=== PATIENT | female | born 2000 | race Caucasian/White ===

== ENCOUNTER → 2020-05-05 10:50 | Outpatient (CLI) | payer OTHER, SELFPAY ==
--- NOTE | ~2020-05-05 | XR_ITS ---
EXAMINATION: XR knee LT min 4V DATE: 05/05/2020 11:17 INDICATION: Left knee contusion with anterolateral pain post fall onto concrete floor 4 days prior. TECHNIQUE: Anteroposterior, 2 oblique and crosstable lateral views of the left knee were obtained COMPARISON: None. FINDINGS: Alignment is normal. No fracture. No joint effusion/layering lipohemarthrosis. Soft tissues are unre markable. IMPRESSION: 1. Normal left knee radiographs. Reviewed, dictated and finalized at location B. RTISING SALES MANAGER
== END ==
PROVIDERS: PCP Family Medicine; Visit Provider Family Medicine
DX: S80.00XA Contusion of unspecified knee, initial encounter (principal)
CPT/HCPCS: 73564

== ENCOUNTER 2022-10-31 14:38 | Emergency (ER) | payer OTHER, SELFPAY ==
[2022-10-31 15:03] VITALS: BP 120/60; PULSE 82; RESP 16; TEMP 36.9; O2SAT 99
--- NOTE | 2022-10-31 15:24 | ECG_ITS ---
Measurements Intervals [place] Rate: 97 P: 97 SC: 125 QRS: 89 QRSD: 84 T: 57 QT: 360 QTc: 459 Interpretive Statements SINUS RHYTHM NONSPECIFIC ST AND T-WAVE ABNORMALITY ABNORMAL ECG NO PREVIOUS ECG AVAILABLE FOR COMPARISON Electronically Signed On 11-01-2022 9:13:59 CDT by Tone Yip M.D.
[2022-10-31 20:22] VITALS: BP 130/74; PULSE 83; RESP 19; TEMP 36.4; O2SAT 98
[2022-10-31 20:33] LABS: Basophils Percent Auto 0.2 % (0.2-1.2); Hematocrit 34.7 % (37.0-47.0); Hemoglobin 11.5 g/dL (12.0-15.0); Immature Granulocyte Absolute 0.07 K/mm3 (0.00-0.031); Immature Granulocyte Percent A 0.5 % (0-0.5); Lymphocytes Percent Auto 6.8 % (18.3-44.2); Mean Corpuscular HGB Conc 33.1 g/dl (32-36); Mean Corpuscular Hemoglobin 28.2 pg (26-34); Mean Platelet Volume 9.3 fl (7.4-10.4); Monocytes Absolute Auto 0.4 K/mm3 (0.1-0.6); Neutrophils Absolute Auto 11.9 K/mm3 (1.3-6.7); Neutrophils Percent Auto 89.5 % (45.5-73.1); Platelet Count Result 380 k/mm3 (150-375); Red Blood Count 4.08 M/mm3 (4.2-5.4); Red Cell Distribution Width 13.1 % (11.5-14.5); White Blood Count 13.3 K/mm3 (4.5-10.0)
[2022-10-31 20:41] LABS: Alanine Aminotransferase 19 U/L (6-35); Albumin Level 4.7 g/dL (3.5-5.1); Alkaline Phosphatase 58 U/L (38-126); Anion Gap 16 mmol/L (8-16); Aspartate Amino Transferase 28 U/L (14-36); Bilirubin,Total 0.6 mg/dL (0.2-1.3); Blood Urea Nitrogen 15 mg/dL (7-17); Calcium 8.9 mg/dL (8.4-10.2); Carbon Dioxide 15 mmol/L (22-30); Chloride 103 mmol/L (98-107); Estimated CRCL calculation 167 ml/min; Estimated Glomerular Filt Rate > 60; Glucose 127 mg/dL (65-110); Lipase 41 U/L (23-300); Potassium 3.5 mmol/L (3.4-5.0); Sodium 134 mmol/L (137-145)
[2022-10-31 22:03] VITALS: BP 105/70; PULSE 76; RESP 15; TEMP 36.8; O2SAT 100
[2022-10-31] MEDS: SODIUM CHLORIDE 0.9% IV 1,000 ML 999 ML IV CONT ×2 (22:43→22:44)
[2022-10-31] MEDS: PROCHLORPERAZINE EDISYLATE 10 MG/2 ML VIAL IV PUSH (22:43)
[2022-10-31] MEDS: diphenhydrAMINE HCl INJ 50 MG/ML VIAL IV PUSH (22:43)
[2022-10-31 23:02] LABS: Pregnancy On Board Control Positive; Urine Pregnancy Test Negative
[2022-10-31 23:05] LABS: Magnesium 1.6 mg/dL (1.6-2.3)
[2022-10-31 23:13] LABS: Appearance Urine Cloudy (Clear); Bacteria Urine 2+ /hpf; Bilirubin Urine Negative (Negative); Blood Urine Negative (Negative); Color Urine Dark Yellow (Yellow); Glucose Urine UA Negative (Negative); Ketones Urine 4+ mg/dL (Negative); Leukocyte Esterase Ur Negative LEU/UL (Negative); Mucus Urine Present /lpf; Nitrate Urine Negative (Negative); Protein Urine 1+ mg/dL (Negative); RBC Urine 0-2 /hpf (0-2); Specific Grav Ur 1.032 (1.001-1.035); Squamous Epithelial Cell Urine Moderate /hpf (Few); pH Urine 8.5 (5.0-9.0)
[2022-10-31 23:14] LABS: Add Urine Microscopic? YES
[2022-10-31] MEDS: MAGNESIUM SULF 1 GM/D5W 100 ML 1 GM/100 ML BAG IVPB (23:47)
--- NOTE | 2022-11-01 01:04 | ED.GENADULT ---
HPI - General Adult General Chief complaint: Nausea/Vomiting/Diarrhea Stated complaint: vomiting since 0700 Time Seen by Provider: 10/31/22 22:07 History of Present Illness HPI narrative: Patient 22-year-old female who presents emerged part with chief complaint of nausea and vomiting and abdominal discomfort. The patient reports she has history of abdominal migraines and reports that she started having an episode and has been unable to keep fluids down. The patient states that the symptoms or not improved by anything and reports that usually Zofran does not work well for her. Patient denies fever denies dysuria patient reports this is her typical presentation for this. Patient denies marijuana use Related Data Allergies Allergy/AdvReac Type Severity Reaction Status Date / Time No Known Allergies Allergy Verified 10/31/22 14:38 Review of Systems Review of Systems: A 10 system review of systems was completed on the patient and is negative except for what is stated in the HPI. Nursing and ancillary documentation was reviewed. PMFSH Past Medical History Medical History Chronic anxiety Concussion Cyclical vomiting Depression History of COVID-19 Left knee sprain Surgical History Surgical History No history of previous surgery Social History Social History Smoking status: Current every day smoker Tobacco type: e-cigarettes/vaping Alcohol intake: never Substance use: never Substance use type: does not use Lack of Transportation: No Lack of Food: Never True Current Housing: I Have Housing Concerned About Future Housing: No Difficulty Paying Gas/Electric Bills: No Difficulty Paying for Meds: No Currently Unemployed: No Education: Associate Degree Difficulty w/ Childcare or Family Care: No Exam Narrative: GENERAL: Well-appearing, well-nourished, and in no acute distress. HEAD: Normocephalic, atraumatic. EYES: PERRLA and EOMI. ENT: Nares clear, no rhinorrhea or epistaxis. Mucous membranes moist. NECK: Supple. CHEST: Clear to auscultation. No respiratory distress. HEART: Regular rate and rhythm. No murmur heard. Normal peripheral pulses. ABDOMEN: Soft, diffusely tender to palpation, nondistended, normal active bowel sounds. EXTREMITIES: Normal range of motion. No edema. SKIN: Warm, dry, no rash. NEURO: No focal deficits. Alert and oriented x3. PSYCH: Normal mood and affect. Course Vital Signs Vital signs: Vital Signs Temperature 36.9 C 10/31/22 15:03 Pulse Rate 82 10/31/22 15:03 Respiratory Rate 16 10/31/22 15:03 Blood Pressure 120/60 10/31/22 15:03 Pulse Oximetry 99 10/31/22 15:03 Oxygen Delivery Room Air 10/31/22 15:03 Temperature 36.8 C 10/31/22 22:03 Pulse Rate 79 11/01/22 01:16 Respiratory Rate 20 11/01/22 01:16 Blood Pressure 116/65 11/01/22 01:16 Pulse Oximetry 100 11/01/22 01:16 Oxygen Delivery Room Air 10/31/22 15:03 Medical Decision Making MDM Narrative Medical decision making narrative: Differential diagnosis includes abdominal migraine, cyclic vomiting syndrome, Laboratory studies were obtained on the patient which showed a white count of 13.3 electrolytes showed a sodium 134 CO2 of 15 potassium was 3.5 lipase was normal liver enzymes are normal urinalysis showed 4+ ketones a 11-20 white blood cells and 2+ bacteria. Patient received 2 L of normal saline boluses and received IV Compazine and Benadryl. Patient is feeling much better at this time Vital Signs Vital Signs: Vital Signs Temperature 36.9 C 10/31/22 15:03 Pulse Rate 82 10/31/22 15:03 Respiratory Rate 16 10/31/22 15:03 Blood Pressure 120/60 10/31/22 15:03 Pulse Oximetry 99 10/31/22 15:03 Oxygen Delivery Room Air 10/31/22 15:
[2022-11-01 01:16] VITALS: BP 116/65; PULSE 79; RESP 20; O2SAT 100
--- NOTE | 2022-11-01 02:07 | PC.NURSE ---
Pt PO challenged and tolerated well
[2022-11-01 02:32] VITALS: BP 139/77; PULSE 97; RESP 20; O2SAT 100
== END 2022-11-01 03:14 | disposition home or self-care (01) ==
PROVIDERS: Physician Assistant; Emergency Provider Emergency Medicine; PCP Family Medicine
DX: G43.D0 Abdominal migraine, not intractable (principal); G43.A0 Cyclical vomiting, in migraine, not intractable; F17.290 Nicotine dependence, other tobacco product, uncomplicated; Z86.16 Personal history of COVID-19; R94.31 Abnormal electrocardiogram [ECG] [EKG]
CPT/HCPCS: 36415; 80053; 81001; 81025; 83690; 83735; 85025; 87086; 87088; 93005; 96361; 96365; 96375; 99284; J0780; J1200; J3475; J7030

== ENCOUNTER 2022-12-07 10:21 | Inpatient (IN) | payer OTHER, SELFPAY ==
--- NOTE | ~2022-12-07 | CT_ITS ---
EXAMINATION: CT abdomen pelvis w con DATE: 12/07/2022 15:08 INDICATION: Generalized abdominal pain TECHNIQUE: Computed tomography (CT) of the abdomen and pelvis was performed with 100 mL Omnipaque-350 intravenous contrast. Automated exposure control and iterative reconstruction technique were employe d. The dose-length product was 463.55 mGy-cm. COMPARISON: None FINDINGS: Lung bases are clear. Heart size is normal. No pericardial or pleural effusion. Liver, gallbladder, s pleen, pancreas, bilateral adrenal glands and kidneys are normal. Bowels including the appendix are n ormal. Bladder, anteverted uterus and bilateral adnexa are unremarkable. No free intraperitoneal gas or fluid. No pathologically enlarged abdominal or pelvic lymphadenopathy. L5 unilateral left-sided pa rs intra-articularis defect. Mild thoracic spondylosis. IMPRESSION: 1. No acute intra-abdominal/pelvic process. Reviewed, dictated and finalized at location A.
[2022-12-07 10:38] VITALS: BP 137/72; PULSE 102; RESP 16; TEMP 36.6; O2SAT 98
[2022-12-07 11:00] LABS: Appearance Urine Cloudy (Clear); Bacteria Urine 2+ /hpf; Bilirubin Urine Negative (Negative); Color Urine Dark Yellow (Yellow); Glucose Urine UA Negative (Negative); Ketones Urine 3+ mg/dL (Negative); Leukocyte Esterase Ur 2+ LEU/UL (Negative); Need Manual Microscopic Reviewed; Nitrate Urine Negative (Negative); Protein Urine 2+ mg/dL (Negative); Squamous Epithelial Cell Urine Occasional /hpf (Few); WBC Urine >100 /hpf
[2022-12-07 11:01] LABS: Add Urine Microscopic? YES
[2022-12-07] MEDS: SODIUM CHLORIDE 0.9% IV 1,000 ML 999 ML IV CONT ×2 (12:45→14:47)
[2022-12-07 12:53] LABS: Basophils Percent Auto 0.2 % (0.2-1.2); Hematocrit 38.7 % (37.0-47.0); Hemoglobin 12.4 g/dL (12.0-15.0); Immature Granulocyte Absolute 0.11 K/mm3 (0.00-0.031); Immature Granulocyte Percent A 0.8 % (0-0.5); Lymphocytes Absolute Auto 1.67 K/mm3 (0.9-3.2); Lymphocytes Percent Auto 11.9 % (18.3-44.2); Mean Corpuscular Hemoglobin 28.2 pg (26-34); Mean Corpuscular Volume 88.2 fl (80-100); Mean Platelet Volume 9.7 fl (7.4-10.4); Monocytes Absolute Auto 1.2 K/mm3 (0.1-0.6); Monocytes Percent Auto 8.8 % (2.6-8.5); Neutrophils Percent Auto 78.3 % (45.5-73.1); Platelet Count Result 365 k/mm3 (150-375); Red Blood Count 4.39 M/mm3 (4.2-5.4); Red Cell Distribution Width 13.5 % (11.5-14.5)
[2022-12-07 13:01] LABS: Alanine Aminotransferase 14 U/L (6-35); Albumin Level 4.4 g/dL (3.5-5.1); Alkaline Phosphatase 53 U/L (38-126); Anion Gap 16 mmol/L (8-16); Aspartate Amino Transferase 22 U/L (14-36); Bilirubin,Total 0.6 mg/dL (0.2-1.3); Blood Urea Nitrogen 18 mg/dL (7-17); Calcium 9.2 mg/dL (8.4-10.2); Carbon Dioxide 16 mmol/L (22-30); Chloride 105 mmol/L (98-107); Estimated CRCL calculation 167 ml/min; Estimated Glomerular Filt Rate > 60; Glucose 115 mg/dL (65-110); Lipase 45 U/L (23-300); Potassium 3.6 mmol/L (3.4-5.0); Sodium 137 mmol/L (137-145)
--- NOTE | 2022-12-07 14:05 | ECG_ITS ---
Measurements Intervals [place] Rate: 75 P: 52 OK: 110 QRS: 80 QRSD: 82 T: 65 QT: 417 QTc: 467 Interpretive Statements SINUS RHYTHM WITH SINUS ARRHYTHMIA WITH SHORT OK INTERVAL COMPARED TO ECG 10/31/2022 15:30:16 SINUS ARRHYTHMIA NOW PRESENT Electronically Signed On 12-08-2022 14:15:54 CDT by Angie Delong M.D.
--- NOTE | 2022-12-07 14:07 | ED.NAVMDI ---
HPI - Nausea/Vomiting/Diarrhea General Chief complaint: Nausea/Vomiting/Diarrhea <Manuela Culp PA-C - Last Filed: 12/07/22 18:22> Stated complaint: Vomitting, fever <Manuela Culp PA-C - Last Filed: 12/07/22 18:22> Time Seen by Provider: 12/07/22 13:11 <NANETTE Spaulding Last Filed: 12/07/22 18:22> History of Present Illness HPI Narrative: 22-year-old female with a history of cyclical vomiting reports for evaluation for generalized abdominal pain and vomiting for 2 days. Patient reports she was diagnosed with cyclical vomiting when she was 7 and since then has had intermittent episodes of vomiting. She denies known triggers. She is reporting generalized abdominal tenderness difficulty tolerating p.o. intake. She denies drug or alcohol use, no use of marijuana. She reports body aches and chills, denies known fever. Denies dysuria or hematuria, back pain, chest pain or shortness of breath, cough or congestion, hematemesis or coffee-ground emesis, diarrhea, known fevers, headache. <Manuela Culp PA-C - Last Filed: 12/07/22 18:22> Related Data Allergies/Adverse reactions: Allergies Allergy/AdvReac Type Severity Reaction Status Date / Time No Known Allergies Allergy Verified 10/31/22 14:38 <Manuela Culp PA-C - Last Filed: 12/07/22 18:22> Review of Systems Review of Systems: CONSTITUTIONAL: See HPI EYES: Denies visual changes, redness, or discharge. ENT: Denies rhinorrhea, congestion, sore throat, or otalgia. CARDIOVASCULAR: Denies chest pain, palpitations, or edema. RESPIRATORY: Denies cough or dyspnea. GASTROINTESTINAL: See HPI GENITOURINARY: Denies dysuria or hematuria. SKIN: Denies rash or itching. MUSCULOSKELETAL: Denies back pain, joint pain, or myalgia. NEUROLOGIC: Denies headache, numbness, dizziness, or weakness. PSYCHIATRIC: Denies anxiety or depression. <NANETTE Spaulding Last Filed: 12/07/22 18:22> [facility] Past Medical History Medical History: Medical History Chronic anxiety Concussion Cyclical vomiting Depression History of COVID-19 Left knee sprain <Manuela Culp PA-C - Last Filed: 12/07/22 18:22> Surgical History Surgical History: Surgical History No history of previous surgery <Manuela Culp PA-C - Last Filed: 12/07/22 18:22> Social History Social History: Social History Smoking status: Never smoker Tobacco type: e-cigarettes/vaping Alcohol intake: current Drinks per week: 1 Substance use: never Substance use type: does not use Lack of Transportation: No Lack of Food: Never True Current Housing: I Have Housing Concerned About Future Housing: No Difficulty Paying Gas/Electric Bills: No Difficulty Paying for Meds: No Currently Unemployed: No Education: Bachelor's Degree Difficulty w/ Childcare or Family Care: No Spiritual care concerns: No <Manuela Culp PA-C - Last Filed: 12/07/22 18:22> Exam Narrative: GENERAL: Patient appears ill and uncomfortable. HEAD: Normocephalic EYES: PERRLA ENT: Nares clear. Mucous membranes moist. Oropharynx without tonsillar hypertrophy exudate or other lesions. NECK: Supple. CHEST: No respiratory distress. Clear to auscultation, no adventitious breath sounds. HEART: Regular rate and rhythm. No murmur heard. Normal peripheral pulses. ABDOMEN: Soft, normal active bowel sounds. Generalized abdominal tenderness without guarding or rigidity. No CVA tenderness. No overlying skin changes. No rebound. EXTREMITIES: Normal range of motion. No edema. SKIN: Warm, dry, no rash. NEURO: No focal deficits. Alert and oriented x3. PSYCH: Normal mood and affect. <Manuela Culp PA-C - Last Filed: 12/07/22 18:22> Course MECHANICAL DESIGNER/PA Physician Supervision
[2022-12-07] MEDS: PROCHLORPERAZINE EDISYLATE 10 MG/2 ML VIAL IV PUSH (14:36)
[2022-12-07 14:50] LABS: Lactic Acid Reflex 1.2 mmol/L (0.7-2.0)
[2022-12-07 15:45] VITALS: O2SAT 100
[2022-12-07 16:03] VITALS: O2SAT 100
[2022-12-07 16:17] VITALS: O2SAT 100
[2022-12-07 19:36] VITALS: BP 124/65; PULSE 67; RESP 16; TEMP 36.8; O2SAT 100
[2022-12-07] MEDS: SODIUM CHLORIDE 0.9% IV 1,000 ML 125 ML IV CONT (19:37)
--- NOTE | 2022-12-07 19:37 | ADMGEN ---
Addendum entered by Jamaica Haas RN 12/07/22 19:37: Pt arrived to the floor with parents at bedside. Pt reports feeling nauseous since beginning to drink water. Pt has IV fluids going. Pt IV continues to be occluded so new IV will be attempted by security shift manager RN. Pt will continue to be monitored. Original Note: This patient, Patricia Michelle, was admitted to [facility] Surg Room 302-01. Patient/family oriented to hospital policies and general routines including ID bracelet, bed and alarms, visiting hours, pain management, procedures, bathroom and other care routines, personal items, smoking policy, room service/diet, and visiting hours. Information on how to activate the Rapid Response Team has been discussed. Patient/Family are encouraged to report perceived risks to care and to ask questions if they do not understand what they are told or what they should do.
[2022-12-07 20:00] VITALS: BP 140/73; PULSE 91
[2022-12-07] MEDS: ONDANSETRON INJ 4 MG/2 ML VIAL IV PUSH (21:25)
[2022-12-08] MEDS: SODIUM CHLORIDE 0.9% IV 1,000 ML 125 ML IV CONT ×3 (01:18→19:32)
--- NOTE | 2022-12-08 03:40 | PM.IMHP ---
H&P: HPI History of Present Illness Date/Time: 12/08/22 03:40 Chief Complaint: ?cyclic vomiting? Narrative: 22-year-old female with a past medical history abdominal migraines, cyclic vomiting, ADHD, anxiety and depression who presented to the ER with generalized vomiting and abdominal pain for 2 days. The patient reports he has been diagnosed with cyclic vomiting from the age of 7. She reports that is been about 10 years since she has had a really bad bout with cyclic vomiting needed to be admitted to the hospital. Usually when she starts vomiting it occurs every 20-30 minutes until it stops. Her symptoms this admission were little bit different. She thought that she may have gotten a case of food poisoning.. She did not feel bad prior to initiation of her symptoms. To she thought she may have gotten bed food to start of her symptoms. However in hindsight she also has been having some increased urinary frequency and urgency. She thought that this was due to trying to drink more fluids. She denies any hematuria, dysuria or foul-smelling urine. However UA in the ER is consistent with likely UTI. She has not been having any fevers or chills. She does practice post coital voiding. She reports that when she started vomiting she developed generalized abdominal tenderness with decreased oral intake. Intention during the heater drinking she was vomiting. Her emesis was mostly clear with occasional green flecks. She does not use marijuana. And she only drinks alcohol about 1 drink a month. She will not drink more than this could she is for did will trigger her nausea vomiting. She denies any coffee-ground emesis hematemesis or hematochezia. She did have several episodes of explosive loose stool 2-3 that started the day after onset of symptoms. She presented to the ER when her symptoms were ongoing for 2 days without relief. Review of Systems Review of Systems: 12 systems were reviewed with pertinent positives and negatives per HPI. Except as documented in the HPI, all other systems were reviewed and are negative. [facility] Past Medical History Medical History (Updated 12/08/22 @ 03:53 by Rosalva Fernandez DO) Chronic anxiety Concussion Cyclical vomiting Depression Bessy-Danlos disease History of COVID-19 Left knee sprain Surgical History Surgical History No history of previous surgery Family History Family History (Updated 12/08/22 @ 07:42 by Rosalva Fernandez DO) Other No significant family history Social History Social History (Updated 12/08/22 @ 07:44 by Rosalva Fernandez DO) Social History: She reports she just graduated from [employer] with a BA in biology. She has not yet started looking for work. She has dating and sexually active. She drinks alcohol about once a month. She denies any illicit substance use. She does vape nicotine. She lives with her parents. Code status: Full code Surrogate decision maker: Mother Smoking status: Never smoker Tobacco type: e-cigarettes/vaping Alcohol intake: current Drinks per week: 1 Substance use: never Substance use type: does not use Lack of Transportation: No Lack of Food: Never True Current Housing: I Have Housing Concerned About Future Housing: No Difficulty Paying Gas/Electric Bills: No Difficulty Paying for Meds: No Currently Unemployed: No Education: Bachelor's Degree Difficulty w/ Childcare or Family Care: No Spiritual care concerns: No Meds Home Medications and Allergies Home Medications Medication Instructions Recorded Confirmed Type triamcinolone acetonide 0.1 % 1 applic topical QID #80 grams 08/15/21 12/07/22 Rx topical cream desogestrel-e.estradiol 0.15 See Rx Instructions .Route 05/01/22 12/07/22 Rx mg-0.02 mg(21)/e.estrad 0.01 mg(5) .COMPLEX #84 tabs tablet (Farida ([id number])) sertraline 50 mg tablet 50 mg PO DA
[2022-12-08 06:00] VITALS: BP 117/59; PULSE 70; RESP 16; TEMP 36.8; O2SAT 99
[2022-12-08 06:47] LABS: Hematocrit 34.2 % (37.0-47.0); Mean Corpuscular HGB Conc 32.2 g/dl (32-36); Mean Corpuscular Hemoglobin 28.4 pg (26-34); Mean Corpuscular Volume 88.4 fl (80-100); Mean Platelet Volume 9.7 fl (7.4-10.4); Platelet Count Result 321 k/mm3 (150-375); Red Blood Count 3.87 M/mm3 (4.2-5.4); Red Cell Distribution Width 13.5 % (11.5-14.5); White Blood Count 11.9 K/mm3 (4.5-10.0)
[2022-12-08 06:54] LABS: Anion Gap 7 mmol/L (8-16); Blood Urea Nitrogen 15 mg/dL (7-17); Calcium 7.9 mg/dL (8.4-10.2); Carbon Dioxide 21 mmol/L (22-30); Chloride 107 mmol/L (98-107); Estimated CRCL calculation 167 ml/min; Estimated Glomerular Filt Rate > 60; Glucose 93 mg/dL (65-110); Magnesium 2.1 mg/dL (1.6-2.3); Potassium 3.4 mmol/L (3.4-5.0); Sodium 135 mmol/L (137-145)
--- NOTE | 2022-12-08 08:00 | PM.IMPN ---
Progress Note: A&P Assessment and Plan (1) Urinary tract infection: Qualifiers: Hematuria presence: with hematuria Urinary tract infection type: acute cystitis Qualified Code(s): N30.01 - Acute cystitis with hematuria Code(s): N39.0 - Urinary tract infection, site not specified Status: Acute Assessment and Plan: Urinalysis suggestive infection. Urine culture pending. IV Rocephin. (2) Intractable vomiting with nausea: Code(s): R11.2 - Nausea with vomiting, unspecified Status: Acute Assessment and Plan: Cyclic vomiting since age 7. Father reports that patient usually just has to sleep it off and the nausea medicine helps her rest. We will attempt IV Haldol with Benadryl. (3) Dehydration: Code(s): E86.0 - Dehydration Status: Acute Assessment and Plan: Midline placement has multiple peripheral IVs have infiltrated immediately. Continue IV fluids. Nausea medication p.r.n.. Plan See above. Midline in place Time Spent With Patient Time with patient: Greater than 35 minutes Subjective Date/time seen: 12/08/22 08:00 Interval history: This is a 22-year-old female patient with a history of cyclic vomiting syndrome suspected to be related to menstrual cycle sleep disturbance. Often patient has vomiting for 24 hours and then falls asleep wakes up with symptoms relieved. However, symptoms of ongoing for over 2 days so she came to the hospital was found to have a urinary tract. She is on IV Rocephin this. Patient still severe nausea. She has received IM Phenergan which has helped her rest. Majority history is obtained from her parents as patient is mostly sedate. Father states that first episode was at age 7 and she had problems for a week then suddenly woke up and said she was better and ready to go home. I spent over 30 minutes speaking with family. Review of Systems Review of Systems: ROS unobtainable: Yes unobtainable due to mental status Exam Narrative: Weight 84 kg BMI 28.2 Const: Other: Well-developed well-nourished, no acute distress HENMT: Other: Mucous membranes are tacky, good dentition, no oral pharyngeal erythema Eyes: Other: No scleral icterus, mild conjunctival pallor, pupils are equal and reactive Neck: Other: No JVD, no significant lymphadenopathy Resp: Other: Clear to auscultation bilaterally, no increased work of breathing Cardio: Other: Regular rate, regular rhythm, 2+ bilateral radial pedal pulses GI: Other: Soft, nontender, nondistended, normoactive bowel sounds Skin: Other: Generalized pallor, No jaundice, normal temperature to touch Neuro: Other: Alert oriented, speech is clear, no facial asymmetry, no localizing neurologic deficits noted during the course of conversation Extrem: Other: No clubbing, cyanosis or edema Psych: Other: Appropriate mood and affect, pleasant and cooperative, judgment insight intact Objective Data Vital Signs Vital Signs: Vital Signs - 24 hr 12/07/22 10:38 12/07/22 15:45 12/07/22 16:03 Temperature 36.6 C Pulse Rate 102 H Respiratory Rate 16 Blood Pressure 137/72 Pulse Oximetry 98 100 100 Oxygen Delivery Room Air 12/07/22 16:17 12/07/22 19:36 12/07/22 20:00 Temperature 36.8 C Pulse Rate 67 91 Respiratory Rate 16 Blood Pressure 124/65 140/73 Pulse Oximetry 100 100 Oxygen Delivery 12/07/22 20:00 12/08/22 06:00 Temperature 36.8 C Pulse Rate 70 Respiratory Rate 16 Blood Pressure 117/59 L Pulse Oximetry 99 Oxygen Delivery Room Air Intake/Output Intake/Output: Intake & Output 12/05/22 12/06/22 12/07/22 12/08/22 23:59 23:59 23:59 23:59 Intake Total 2550 1500 Output Total 200 325 Balance 2350 1175 Meds/Results Medications: Active Medications Generic Name Dose Route Start Last Admin Trade Name Freq PRN Reason Stop Dose Admin Ceftriaxone
[2022-12-08] MEDS: PROMETHAZINE HCL 25 MG/ML AMPUL IM (08:18)
[2022-12-08] MEDS: SERTRALINE HCL 50 MG TABLET PO (08:18)
--- NOTE | 2022-12-08 11:05 | PHAR ---
Home med verified: Volnea control pack - no Rx label present
[2022-12-08] MEDS: LIDOCAINE HCL 1% LOCAL INJ 2 ML AMPUL 5 ML INFILTRATE (11:15)
[2022-12-08 14:00] VITALS: BP 123/73; PULSE 71; RESP 14; TEMP 36.6; O2SAT 100
[2022-12-08] MEDS: SALINE LOCK FLUSH 10 ML IV PUSH (15:32)
[2022-12-08] MEDS: cefTRIAXone 2 GM/NS 100 ML 2 GM/100 ML BAG IVPB (15:32)
[2022-12-08] MEDS: HALOPERIDOL LACTATE 5 MG/ML VIAL IV PUSH (17:32)
[2022-12-08] MEDS: diphenhydrAMINE HCl INJ 50 MG/ML VIAL 25 MG IV PUSH (17:32)
[2022-12-08 18:32] LABS: Amphetamine Screen Urine Negative (Negative); Barbiturate Screen Urine Negative (Negative); Benzodiazepines Screen Urine Negative (Negative); Cannabinoid Screen Urine Positive (Negative); Cocaine Screen Urine Negative (Negative); Methadone Screen Urine Negative (Negative); Opiate Screen Urine Negative (Negative); Phencyclidine Screen Urine Negative (Negative)
[2022-12-08 21:29] VITALS: BP 123/82; PULSE 77; RESP 13; TEMP 37.3; O2SAT 100
[2022-12-09] MEDS: diphenhydrAMINE HCl INJ 50 MG/ML VIAL 25 MG IV PUSH ×2 (00:07→08:29)
[2022-12-09] MEDS: HALOPERIDOL LACTATE 5 MG/ML VIAL IV PUSH ×2 (00:07→08:28)
[2022-12-09] MEDS: SALINE LOCK FLUSH 10 ML IV PUSH ×4 (00:07→20:22)
[2022-12-09 00:15] VITALS: O2SAT 99
--- NOTE | 2022-12-09 00:23 | PC.NURSE ---
Pt reported that the haldol/benadryl combination she received around 5pm helped for nausea until patient woke up nauseous just before midnight. no emesis noted. haldol/benadryl administered again per MAR
[2022-12-09] MEDS: SODIUM CHLORIDE 0.9% IV 1,000 ML 125 ML IV CONT ×3 (03:33→20:21)
[2022-12-09 05:29] VITALS: BP 118/79; PULSE 55; RESP 12; TEMP 36.5; O2SAT 99
[2022-12-09 07:57] VITALS: O2SAT 99
[2022-12-09] MEDS: SERTRALINE HCL 50 MG TABLET PO (08:29)
--- NOTE | 2022-12-09 11:29 | PM.IMPN ---
Progress Note: A&P Assessment and Plan (1) Urinary tract infection: Qualifiers: Hematuria presence: with hematuria Urinary tract infection type: acute cystitis Qualified Code(s): N30.01 - Acute cystitis with hematuria Code(s): N39.0 - Urinary tract infection, site not specified Status: Acute Assessment and Plan: 12/08/2022: Urinalysis suggestive infection. Urine culture pending. IV Rocephin. 12/09/2022: -UA revealed 2+ protein, 3+ ketones, 2+ leukocytes, 2+ bacteria, nitrates were negative. -WBC today was 11.9, BUN 15, creatinine 0.5, potassium 3.4, magnesium 2.1. -urine culture was positive with staphylococcus saprophyticus, awaiting sensitivity to come back. -currently on Rocephin 2 g Q 24 hour and will continue this until culture sensitivities come back. -blood cultures x2 are no growth to date, will continue to monitor (2) Intractable vomiting with nausea: Code(s): R11.2 - Nausea with vomiting, unspecified Status: Acute Assessment and Plan: 12/08/2022: Cyclic vomiting since age 7. Father reports that patient usually just has to sleep it off and the nausea medicine helps her rest. We will attempt IV Haldol with Benadryl. 12/09/2022: -patient is still reporting nausea through the night requiring Haldol and Benadryl. Nursing also gave Phenergan. Patient is somnolent today with minimal interaction. She is not tolerating p.o. intake. Plan is to DC Haldol, Benadryl, Phenergan and replace it with Compazine which seemed to work for her while in the emergency room for control of her nausea and vomiting. -patient encouraged to increase her oral intake today -continue IV fluids - (3) Dehydration: Code(s): E86.0 - Dehydration Status: Acute Assessment and Plan: 12/08/2022: Midline placement has multiple peripheral IVs have infiltrated immediately. Continue IV fluids. Nausea medication p.r.n. 12/09/2022: -continue IV fluids -encourage p.o. intake -Compazine ordered for nausea control. Haldol, Benadryl, and Phenergan DC'd due to somnolence and minimal interaction. Time Spent With Patient Time with patient: 25 - 35 minutes Subjective Date/time seen: 12/09/22 11:29 Interval history: This is a 22-year-old female who presented to the ER on 12/07 with chief complaint of cyclic vomiting. Patient states that she was diagnosed with cyclic vomiting from the age of 7. She reports that she has not had a really bad bout of cyclic vomiting for quite some time. On initial exam she was complaining of urinary frequency and urgency. A UA was performed which shown 2+ protein, 3+ ketones, 2+ leukocytes, 2+ bacteria, nitrates negative. Urine culture was obtained and final results revealed Staphylococcus saprophyticus, however we are still waiting for sensitivity on this culture. Patient has been placed on IV Rocephin. Blood cultures are no growth day 2 and still pending. Labs today revealed WBC 11.9, sodium 135, potassium 3.4, BUN 15, creatinine 0.5. On examination today patient was alert to voice, oriented x3, but drifted back off to sleep with minimal interaction after stimulation. Patient received Haldol, Benadryl, and Phenergan for nausea overnight which could be the reason she is so somnolent today. Patient not taking in adequate po due to her nausea and her somnolence. Plan is to discontinue Haldol, Benadryl, and Phenergan. Patient was given Compazine in the ED which seemed to work okay for her and will put her back on this for nausea vomiting coverage. Patient was encouraged to try and increase her intake today. Review of Systems Constitutional: Constitutional: Reports as per HPI and Reports fatigue Eyes: Eyes: Reports as per HPI and Reports no additional eye complaints ENT: Reports system reviewed and no additional complaints, except as documented and Reports as per HPI Cardiovascular: Cardiovascular: Reports as per HPI and Reports no additional cardiovascular complai
[2022-12-09 14:00] VITALS: BP 126/81; PULSE 68; RESP 16; TEMP 36.8; O2SAT 100
[2022-12-09] MEDS: cefTRIAXone 2 GM/NS 100 ML 2 GM/100 ML BAG IVPB (15:17)
[2022-12-09] MEDS: PROCHLORPERAZINE EDISYLATE 10 MG/2 ML VIAL IV PUSH (15:22)
[2022-12-09] MEDS: LORazepam INJ (*CRX) 2 MG/ML VIAL 0.5 MG IV PUSH (20:38)
[2022-12-09 21:03] VITALS: BP 129/84; PULSE 58; RESP 13; TEMP 37.4; O2SAT 99
[2022-12-10] MEDS: SODIUM CHLORIDE 0.9% IV 1,000 ML 125 ML IV CONT (03:55)
[2022-12-10 04:07] LABS: Basophils Absolute Auto 0.1 K/mm3 (0.0-0.1); Basophils Percent Auto 0.6 % (0.2-1.2); Eosinophils Percent Auto 0.4 % (0-4.4); Hemoglobin 10.2 g/dL (12.0-15.0); Immature Granulocyte Absolute 0.04 K/mm3 (0.00-0.031); Immature Granulocyte Percent A 0.5 % (0-0.5); Lymphocytes Absolute Auto 2.82 K/mm3 (0.9-3.2); Lymphocytes Percent Auto 33.4 % (18.3-44.2); Mean Corpuscular HGB Conc 32.9 g/dl (32-36); Mean Corpuscular Hemoglobin 28.3 pg (26-34); Mean Corpuscular Volume 85.9 fl (80-100); Mean Platelet Volume 9.3 fl (7.4-10.4); Neutrophils Absolute Auto 4.5 K/mm3 (1.3-6.7); Neutrophils Percent Auto 53.1 % (45.5-73.1); Platelet Count Result 272 k/mm3 (150-375); Red Blood Count 3.61 M/mm3 (4.2-5.4); Red Cell Distribution Width 12.7 % (11.5-14.5); White Blood Count 8.4 K/mm3 (4.5-10.0)
[2022-12-10 04:49] LABS: Anion Gap 3 mmol/L (8-16); Blood Urea Nitrogen 5 mg/dL (7-17); Calcium 7.5 mg/dL (8.4-10.2); Carbon Dioxide 26 mmol/L (22-30); Chloride 103 mmol/L (98-107); Estimated CRCL calculation 167 ml/min; Estimated Glomerular Filt Rate > 60; Glucose 95 mg/dL (65-110); Potassium 3.1 mmol/L (3.4-5.0); Sodium 132 mmol/L (137-145)
[2022-12-10 05:09] VITALS: BP 126/79; PULSE 81; RESP 12; TEMP 36.1; O2SAT 100
[2022-12-10] MEDS: SALINE LOCK FLUSH 10 ML IV PUSH ×2 (05:47→14:45)
[2022-12-10] MEDS: POTASSIUM CHLORIDE INJ 40 MEQ in SODIUM CHLORIDE 0.9% IV 500 ML 130 MEQ IVPB (09:24)
[2022-12-10] MEDS: SERTRALINE HCL 50 MG TABLET PO (09:24)
[2022-12-10 14:00] VITALS: BP 118/77; PULSE 77; RESP 20; TEMP 36.6; O2SAT 100
--- NOTE | 2022-12-10 15:35 | PM.DS ---
DS: Admitting Diagnosis Discharge Date 12/10/22 Admitting Diagnosis Urinary tract infection Intractable vomiting and nausea Sepsis Dehydration DS: Discharge Diagnosis Discharge Diagnosis (1) Urinary tract infection: Qualifiers: Hematuria presence: with hematuria Urinary tract infection type: acute cystitis Qualified Code(s): N30.01 - Acute cystitis with hematuria Code(s): N39.0 - Urinary tract infection, site not specified Status: Acute (2) Intractable vomiting with nausea: Code(s): R11.2 - Nausea with vomiting, unspecified Status: Acute (3) Dehydration: Code(s): E86.0 - Dehydration Status: Acute DS: Summary Hospital Course Reason for hospitalization: Urinary tract infection Cyclic vomiting Hospital Course: This is a 22-year-old female who presented to the ER on 12/07/2022 with chief complaint of cyclic vomiting. Patient states that she was diagnosed with cyclic vomiting from the age of 7 however it has been a very long time since she has had a really bad bout of the cyclic vomiting. Hospital workup included a CT of the abdomen and pelvis with contrast which did not reveal any acute intra-abdominal/pelvic process. She also had a UA which shown 2+ protein, 3+ ketones, 2+ leukocytes, 2+ bacteria, nitrates were negative. Urine culture was obtained and a final result revealed Staphylococcus saprophyticus. She was placed on IV Rocephin which she received 2 doses. She also had blood cultures which are no growth day 2. Patient received IV fluid resuscitation, and multiple medications for nausea and vomiting. On exam today patient is still fatigued, more interactive today, and really wanting to go home. She denies any nausea, vomiting, diarrhea, abdominal pain fever, chills. She has started to increase her diet and ambulate in the halls. In light of her not having nausea and vomiting in the last 24 hours it is reasonable to send her home. Plan is to send her home on Compazine 10 mg q.6 hours for nausea to be used as needed and Nitrofurantoin 100mg BID x5 more days, and she will need to follow up with PCP in 1 week. Plan is discussed with his mother, father, and patient bedside. Their all and agreeable with this treatment plan. Status at Discharge Cognitive/behavioral status at discharge: Alert oriented x3 Functional status at discharge: independent ambulation Overall status at discharge: patient is progressing back to baseline Time Spent with Patient Time attestation: Total time spent providing and/or coordinating discharge services: Time spent: Greater than 30 minutes Exam Narrative: GENERAL: fatigued HEAD: Normocephalic, atraumatic. EYES: PERRLA and EOMI. ENT: Nares clear, no rhinorrhea or epistaxis.? Mucous membranes moist. NECK: Supple. No JVD, trachea midline CHEST: Clear/ diminished to auscultation. No adventitious lung sounds? No respiratory distress. HEART: Regular rate and rhythm.? No murmur heard.? Normal peripheral pulses. ABDOMEN: Soft, nondistended, non-tender, normal active bowel sounds. Passing flatus. Had small bowel movement yesterday. EXTREMITIES: Normal range of motion.? No edema. SKIN: Warm, dry, intact, no rash. NEURO: No focal deficits.? Awake to voice and oriented x3 PSYCH: Normal mood and affect DS: Data Data Completed and Pending Completed studies during hospitalization: CT of the abdomen pelvis with contrast Pending studies at discharge: None Labs on day of discharge: Labs from last 24 hours 12/10/22 03:59 WBC 8.4 RBC 3.61 L Hgb 10.2 L Hct 31.0 L MCV 85.9 MCH 28.3 MCHC 32.9 RDW 12.7 Plt Count 272 MPV 9.3 Immature Gran % (Auto) 0.5 Neut % (Auto) 53.1 Lymph % (Auto) 33.4 [place] % (Auto) 12.0 H Eos % (Auto) 0.4 Baso % (Auto) 0.6 Lymph # (Auto) 2.82 [place] # (Auto) 1.0 H Eos # (Auto) 0.0 Baso # (Auto) 0.1 Abs Immat Gran (auto) 0.04 H Absolute Neuts (auto) 4.5 Absolute Nucleated RBC 0.0 Nucleated RBC
[2022-12-10] MEDS: cefTRIAXone 2 GM/NS 100 ML 2 GM/100 ML BAG IVPB (15:43)
[2022-12-10] MEDS: NEOMYCIN/POLYMYXIN/BACITRACIN OINTMENT PACKET 1 PACKET (16:30)
--- NOTE | 2022-12-10 16:36 | PC.NURSE ---
Marilyn Rivera LPN performed care and treatments for this patient on 12/10/22. I agree with her assessments and charting.
--- NOTE | 2022-12-10 17:01 | PC.NURSE ---
12/10/22 @ 4624 Home medication returned to patient at discharge.
== END 2022-12-10 16:55 | disposition home or self-care (01) | DRG 690 ==
LOC: ANHED 15:45 → ANH3MEDSUR 16:22
PROVIDERS: Internal Medicine; Nurse Practitioner; Preventive Medicine Aerospace Medicine; Admitting Provider Internal Medicine; Emergency Provider Physician Assistant; PCP Family Medicine; Visit Provider Nurse Practitioner Acute Care
DX: N30.01 Acute cystitis with hematuria (principal); B95.7 Other staphylococcus as the cause of diseases classified elsewhere; E86.0 Dehydration; G43.A0 Cyclical vomiting, in migraine, not intractable; F41.9 Anxiety disorder, unspecified; F32.A Depression, unspecified; F17.290 Nicotine dependence, other tobacco product, uncomplicated; Z86.16 Personal history of COVID-19
CPT/HCPCS: 36415; 36569; 74177; 80048; 80053; 80307; 81001; 81025; 83605; 83690; 83735; 85025; 85027; 87040; 87077; 87086; 87088; 93005; 96361; 96372; 96375; 96376; 99285; A9270; G0378; J0696; J0780; J1200; J1630; J2060; J2405; J2550; J3480; J7030; J7040; Q9967

== ENCOUNTER 2022-12-23 00:08 | Observation (INO) | payer OTHER, SELFPAY ==
[2022-12-23] VITALS (12 sets, daily range): BP systolic 100–161; BP diastolic 64–96; PULSE 58–96; RESP 12–20; TEMP 36.3–36.7; O2SAT 97–100; BMI 25.1
--- NOTE | ~2022-12-23 | CT_ITS ---
EXAMINATION: CT abdomen pelvis w con DATE: 12/23/2022 03:47 INDICATION: Nausea and vomiting. With 100 cc Omnipaque 350 TECHNIQUE: Computed tomography (CT) of the abdomen and pelvis was performed without intravenous contr ast. The dose-length product was 436.59 mGy-cm. Automated exposure control and iterative reconstructi on technique were employed. COMPARISON: CT dated 12/07/2022. FINDINGS: Lung bases are unremarkable. Heart size normal. No significant pleural or pericardial effus ion. The liver, spleen, pancreas, adrenal glands and kidneys are unremarkable. Gallbladder is present . Nonobstructive bowel pattern. Retroaortic left renal vein. No significant vascular abnormality. No lymphadenopathy. No abnormal pelvic masses or fluid collections. No free air or free fluid. There is a L4 limbus vertebra. There is a left unilateral L5 pars interarticularis defect. IMPRESSION: 1. No acute abdominal abnormality. Reviewed, dictated and finalized at location A.
[2022-12-23] MEDS: diphenhydrAMINE HCl INJ 50 MG/ML VIAL IV PUSH (01:34)
[2022-12-23] MEDS: SODIUM CHLORIDE 0.9% IV 1,000 ML 999 ML IV CONT ×2 (01:34→03:08)
[2022-12-23] MEDS: PROCHLORPERAZINE EDISYLATE 10 MG/2 ML VIAL IV PUSH ×3 (01:34→20:44)
--- NOTE | 2022-12-23 01:48 | ED.GENADULT ---
HPI - General Adult General Chief complaint: Nausea/Vomiting/Diarrhea Stated complaint: vomiting Time Seen by Provider: 12/23/22 00:57 History of Present Illness HPI narrative: Patient 22-year-old female who presents the emergency department with chief complaint of nausea and vomiting. Patient reports she has history of cyclic vomiting syndrome and has been in the emergency department and in the hospital now twice recently. Patient was recently admitted after she had a UTI and was profoundly dehydrated. Patient reports has been taking oral Compazine at home without success patient denies marijuana use Related Data Allergies Allergy/AdvReac Type Severity Reaction Status Date / Time ondansetron [From Zofran] AdvReac Mild not Verified 12/23/22 00:13 effective Review of Systems Review of Systems: A 10 system review of systems was completed on the patient and is negative except for what is stated in the HPI. Nursing and ancillary documentation was reviewed. [facility] Past Medical History Medical History Chronic anxiety Concussion Cyclical vomiting Depression Bessy-Danlos disease History of COVID-19 Left knee sprain Surgical History Surgical History No history of previous surgery Family History Family History Other No significant family history Social History Social History Social History: She reports she just graduated from [employer] with a BA in biology. She has not yet started looking for work. She has dating and sexually active. She drinks alcohol about once a month. She denies any illicit substance use. She does vape nicotine. She lives with her parents. Code status: Full code Surrogate decision maker: Mother Smoking status: Current every day smoker Tobacco type: e-cigarettes/vaping Alcohol intake: current Drinks per week: 1 Substance use: never Substance use type: does not use Lack of Transportation: No Lack of Food: Never True Current Housing: I Have Housing Concerned About Future Housing: No Difficulty Paying Gas/Electric Bills: No Difficulty Paying for Meds: No Currently Unemployed: No Education: Bachelor's Degree Difficulty w/ Childcare or Family Care: No Spiritual care concerns: No Exam Narrative: GENERAL: Illness-appearing, well-nourished, and in no acute distress. HEAD: Normocephalic, atraumatic. EYES: PERRLA and EOMI. ENT: Nares clear, no rhinorrhea or epistaxis. Mucous membranes dry. There is bruising around the face from where the patient has been holding the bowl for vomiting NECK: Supple. CHEST: Clear to auscultation. No respiratory distress. HEART: Regular rate and rhythm. No murmur heard. Normal peripheral pulses. ABDOMEN: Soft, diffusely tender to palpation, nondistended, normal active bowel sounds. EXTREMITIES: Normal range of motion. No edema. SKIN: Warm, dry, no rash. NEURO: No focal deficits. Alert and oriented x3. PSYCH: Normal mood and affect. Course Vital Signs Vital signs: Vital Signs Temperature 36.6 C 12/23/22 00:08 Pulse Rate 82 12/23/22 00:08 Respiratory Rate 15 12/23/22 00:08 Blood Pressure 130/82 12/23/22 00:08 Pulse Oximetry 100 12/23/22 00:08 Oxygen Delivery Room Air 12/23/22 00:08 Temperature 36.6 C 12/23/22 00:08 Pulse Rate 71 12/23/22 05:18 Respiratory Rate 18 12/23/22 05:18 Blood Pressure 116/79 12/23/22 05:18 Pulse Oximetry 99 12/23/22 05:18 Oxygen Delivery Room Air 12/23/22 00:08 Medical Decision Making [facility] Narrative Medical decision making narrative: Differential diagnosis includes cyclic vomiting syndrome, UTI, sepsis, dehydration Laboratory studies were obtained and
[2022-12-23 01:56] LABS: Basophils Percent Auto 0.2 % (0.2-1.2); Eosinophils Percent Auto 0.1 % (0-4.4); Hematocrit 39.8 % (37.0-47.0); Hemoglobin 13.1 g/dL (12.0-15.0); Immature Granulocyte Absolute 0.05 K/mm3 (0.00-0.031); Immature Granulocyte Percent A 0.5 % (0-0.5); Lymphocytes Absolute Auto 1.62 K/mm3 (0.9-3.2); Lymphocytes Percent Auto 15.1 % (18.3-44.2); Mean Corpuscular HGB Conc 32.9 g/dl (32-36); Mean Corpuscular Hemoglobin 27.6 pg (26-34); Mean Platelet Volume 9.8 fl (7.4-10.4); Monocytes Absolute Auto 1.5 K/mm3 (0.1-0.6); Monocytes Percent Auto 14.2 % (2.6-8.5); Neutrophils Absolute Auto 7.5 K/mm3 (1.3-6.7); Neutrophils Percent Auto 69.9 % (45.5-73.1); Platelet Count Result 340 k/mm3 (150-375); Red Blood Count 4.74 M/mm3 (4.2-5.4); Red Cell Distribution Width 13.4 % (11.5-14.5); White Blood Count 10.7 K/mm3 (4.5-10.0)
[2022-12-23 02:09] LABS: Lactic Acid Reflex 1.6 mmol/L (0.7-2.0)
[2022-12-23 02:15] LABS: Alanine Aminotransferase 25 U/L (6-35); Albumin Level 4.5 g/dL (3.5-5.1); Alkaline Phosphatase 47 U/L (38-126); Anion Gap 12 mmol/L (8-16); Aspartate Amino Transferase 37 U/L (14-36); Bilirubin,Total 0.6 mg/dL (0.2-1.3); Blood Urea Nitrogen 15 mg/dL (7-17); Calcium 9.3 mg/dL (8.4-10.2); Carbon Dioxide 20 mmol/L (22-30); Chloride 97 mmol/L (98-107); Estimated CRCL calculation 181 ml/min; Estimated Glomerular Filt Rate > 60; Glucose 120 mg/dL (65-110); Lipase 231 U/L (23-300); Sodium 129 mmol/L (137-145)
[2022-12-23 03:18] LABS: Appearance Urine Cloudy (Clear); Bacteria Urine Rare /hpf; Bilirubin Urine Negative (Negative); Blood Urine Negative (Negative); Color Urine Yellow (Yellow); Glucose Urine UA Negative (Negative); Ketones Urine 2+ mg/dL (Negative); Leukocyte Esterase Ur 1+ LEU/UL (Negative); Nitrate Urine Negative (Negative); Non Pathogenic Casts 0-2; Protein Urine 1+ mg/dL (Negative); RBC Urine 0-2 /hpf (0-2); Specific Grav Ur 1.022 (1.001-1.035); Squamous Epithelial Cell Urine Few /hpf (Few)
[2022-12-23 03:22] LABS: Add Urine Microscopic? YES
[2022-12-23] MEDS: MORPHINE SULFATE (*CRX) 4 MG/ML INJ IV PUSH (06:17)
[2022-12-23] MEDS: SODIUM CHLORIDE 0.9% IV 1,000 ML 125 ML IV CONT ×3 (06:59→20:44)
--- NOTE | 2022-12-23 08:30 | PM.IMHP ---
H&P: HPI History of Present Illness Date/Time: 12/23/22 08:30 Chief Complaint: Nausea with vomiting Narrative: 22-year-old female with history of cyclic vomiting syndrome and recent admission for UTI with dehydration is presenting with intractable nausea and vomiting. Patient has longstanding history of recurrent cyclic vomiting syndrome episodes as well as UTI dehydration brain hospitalizations. She was most recently discharged 12/10 for the same. In the ER, she was initiated on antiemetics and Rocephin for possible UTI given fluid rehydration after being found hyponatremic. Review of Systems Review of Systems: 12 point review of systems was assessed and was negative except as noted in the HPI PMFSH Past Medical History Medical History Chronic anxiety Concussion Cyclical vomiting Depression Bessy-Danlos disease History of COVID-19 Left knee sprain Surgical History Surgical History No history of previous surgery Family History Family History Other No significant family history Social History Social History Social History: She reports she just graduated from [employer] with a BA in biology. She has not yet started looking for work. She has dating and sexually active. She drinks alcohol about once a month. She denies any illicit substance use. She does vape nicotine. She lives with her parents. Code status: Full code Surrogate decision maker: Mother Smoking status: Current every day smoker Tobacco type: e-cigarettes/vaping Alcohol intake: current Drinks per week: 1 Substance use: never Substance use type: does not use Lack of Transportation: No Lack of Food: Never True Current Housing: I Have Housing Concerned About Future Housing: No Difficulty Paying Gas/Electric Bills: No Difficulty Paying for Meds: No Currently Unemployed: No Education: Bachelor's Degree Difficulty w/ Childcare or Family Care: No Spiritual care concerns: No Meds Home Medications and Allergies Home Medications Medication Instructions Recorded Confirmed Type desogestrel-e.estradiol 0.15 See Rx Instructions .Route 05/01/22 12/23/22 Rx mg-0.02 mg(21)/e.estrad 0.01 mg(5) .COMPLEX #84 tabs tablet (Volnea (28)) sertraline 50 mg tablet 50 mg PO DAILY #90 tabs 07/12/22 12/23/22 Rx sumatriptan succinate 50 mg tablet 50 mg PO .COMPLEX #10 tabs 07/12/22 12/23/22 Rx methylphenidate HCl 54 mg 54 mg PO QAM #30 tabs 10/05/22 12/23/22 Rx tablet,extended release 24 hr triamcinolone acetonide 0.1 % 1 applic topical QID PRN Hives 12/23/22 12/23/22 History topical cream Allergies Allergy/AdvReac Type Severity Reaction Status Date / Time ondansetron [From Zofran] AdvReac Mild not Verified 12/23/22 00:13 effective Vital Signs Vital Signs - 24 hr 12/23/22 00:08 12/23/22 01:17 12/23/22 02:55 Temperature 97.9 F Pulse Rate 82 96 87 Respiratory Rate 15 18 18 Blood Pressure 130/82 134/96 H 161/79 H Pulse Oximetry 100 100 100 Oxygen Delivery Room Air 12/23/22 05:18 12/23/22 07:14 12/23/22 08:24 Temperature Pulse Rate 71 61 59 L Respiratory Rate 18 18 18 Blood Pressure 116/79 109/64 Pulse Oximetry 99 98 97 Oxygen Delivery Exam Narrative: General: No acute distress, alert and oriented per baseline HEENT: Atraumatic, normocephalic, mucous membranes moist CV: Regular rate and rhythm, S1, S2 Lungs: Clear to auscultation bilaterally, no rales or crackles noted, no wheezes, good air entry Abdomen: Soft, nontender, nondistended Extremities: Normal to inspection Skin: No rashes noted, no lesions or wounds seen Psych: Euthymic, normal affect H&P: Results Labs Labs: Short CBC 12/23/22 Ran
--- NOTE | 2022-12-23 08:59 | PC.NURSE ---
This patient, Patricia Michelle, was admitted to Medical Room 261-01. Patient/family oriented to hospital policies and general routines including ID bracelet, bed and alarms, visiting hours, pain management, procedures, bathroom and other care routines, personal items, smoking policy, room service/diet, and visiting hours. Information on how to activate the Rapid Response Team has been discussed. Patient/Family are encouraged to report perceived risks to care and to ask questions if they do not understand what they are told or what they should do.
[2022-12-23] MEDS: PANTOPRAZOLE SODIUM IV 40 MG VIAL IV PUSH (10:32)
[2022-12-24 05:29] LABS: Basophils Percent Auto 0.1 % (0.2-1.2); Hematocrit 34.5 % (37.0-47.0); Hemoglobin 11.1 g/dL (12.0-15.0); Immature Granulocyte Absolute 0.03 K/mm3 (0.00-0.031); Immature Granulocyte Percent A 0.4 % (0-0.5); Lymphocytes Absolute Auto 1.48 K/mm3 (0.9-3.2); Lymphocytes Percent Auto 19.6 % (18.3-44.2); Mean Corpuscular HGB Conc 32.2 g/dl (32-36); Mean Corpuscular Hemoglobin 27.8 pg (26-34); Mean Corpuscular Volume 86.3 fl (80-100); Mean Platelet Volume 9.6 fl (7.4-10.4); Monocytes Absolute Auto 0.7 K/mm3 (0.1-0.6); Monocytes Percent Auto 9.4 % (2.6-8.5); Neutrophils Absolute Auto 5.3 K/mm3 (1.3-6.7); Neutrophils Percent Auto 70.5 % (45.5-73.1); Platelet Count Result 268 k/mm3 (150-375); Red Cell Distribution Width 13.2 % (11.5-14.5); White Blood Count 7.6 K/mm3 (4.5-10.0)
[2022-12-24 05:35] VITALS: BP 140/83; PULSE 78; RESP 16; TEMP 36.9; O2SAT 100
[2022-12-24 05:54] LABS: Alanine Aminotransferase 24 U/L (6-35); Albumin Level 3.4 g/dL (3.5-5.1); Alkaline Phosphatase 40 U/L (38-126); Anion Gap 9 mmol/L (8-16); Aspartate Amino Transferase 32 U/L (14-36); Bilirubin,Total 0.5 mg/dL (0.2-1.3); Blood Urea Nitrogen 7 mg/dL (7-17); Calcium 7.8 mg/dL (8.4-10.2); Carbon Dioxide 20 mmol/L (22-30); Chloride 100 mmol/L (98-107); Estimated CRCL calculation 181 ml/min; Estimated Glomerular Filt Rate > 60; Glucose 103 mg/dL (65-110); Potassium 3.3 mmol/L (3.4-5.0); Sodium 129 mmol/L (137-145)
[2022-12-24] MEDS: PANTOPRAZOLE SODIUM IV 40 MG VIAL IV PUSH (09:53)
[2022-12-24] MEDS: SODIUM CHLORIDE 0.9% IV 1,000 ML 125 ML IV CONT (10:44)
--- NOTE | 2022-12-24 12:02 | PM.IMPN ---
Progress Note: A&P Assessment and Plan (1) Intractable cyclical vomiting with nausea: Code(s): R11.15 - Cyclical vomiting syndrome unrelated to migraine Status: Acute Assessment and Plan: IV fluids, antiemetics, supportive care (2) UTI (urinary tract infection): Code(s): N39.0 - Urinary tract infection, site not specified Status: Acute Assessment and Plan: Rocephin initiated 12/22, follow-up urine culture (3) Dehydration: Code(s): E86.0 - Dehydration Status: Acute Assessment and Plan: IV fluid resuscitation (4) Hyponatremia: Code(s): E87.1 - Hypo-osmolality and hyponatremia Status: Acute Assessment and Plan: Likely hypovolemic, see above Essentially unchanged, looks like she had a negative fluid balance despite IV fluids, will increase maintenance rate and give another bolus Plan DVT prophylaxis with SCDs GI prophylaxis not indicated Code status full code Subjective Date/time seen: 12/24/22 12:02 Interval history: 22-year-old female with history of cyclic vomiting syndrome and recent admission for UTI with dehydration is presenting with intractable nausea and vomiting and currently being treated for another UTI exacerbated by CVS and hyponatremia. No overnight events noted. No chest pain or shortness of breath. No fevers or chills. Much improved, still with nausea and vomiting, improving. Review of Systems Review of Systems: 12 point review of systems was assessed and was negative except as noted in the HPI Exam Narrative: General: No acute distress, alert and oriented per baseline HEENT: Atraumatic, normocephalic, mucous membranes moist CV: Regular rate and rhythm, S1, S2 Lungs: Clear to auscultation bilaterally, no rales or crackles noted, no wheezes, good air entry Abdomen: Soft, nontender, nondistended Extremities: Normal to inspection Skin: No rashes noted, no lesions or wounds seen Psych: Euthymic, normal affect Objective Data Vital Signs Vital Signs: Vital Signs - 24 hr 12/23/22 14:30 12/23/22 20:28 12/23/22 20:00 Temperature 97.5 F L 98.1 F Pulse Rate 58 L 77 68 Respiratory Rate 12 20 18 Blood Pressure 106/66 100/82 Pulse Oximetry 98 100 98 Oxygen Delivery Room Air Fraction of Inspired Oxygen 12/24/22 05:35 12/24/22 09:50 Temperature 98.5 F Pulse Rate 78 Respiratory Rate 16 Blood Pressure 140/83 Pulse Oximetry 100 Oxygen Delivery Room Air Fraction of Inspired Oxygen Intake/Output Intake/Output: Intake & Output 12/21/22 12/22/22 12/23/22 12/24/22 23:59 23:59 23:59 23:59 Intake Total 4270 1000 Output Total 1250 800 Balance 3020 200 Meds/Results Medications: Active Medications Generic Name Dose Route Start Last Admin Trade Name Freq PRN Reason Stop Dose Admin Ceftriaxone Sodium 1 gm in 50 mls @ 100 mls/hr 12/24/22 06:00 12/24/22 05:14 Rocephin 1 Gm/Ns 50 Ml IVPB 100 mls/hr Q24H ARNAV Administration Sodium Chloride 1,000 mls @ 125 mls/hr 12/23/22 06:40 12/24/22 10:44 Normal Saline Iv IV CONT 125 mls/hr .Q8H ARNAV Administration Pantoprazole Sodium 40 mg 12/23/22 09:00 12/24/22 09:53 Pantoprazole Sodium Iv 40 Mg Vial IV PUSH 40 mg QAM ARNAV Administration Prochlorperazine Edisylate 10 mg 12/23/22 06:39 12/23/22 20:44 Prochlorperazine Edisylate 10 Mg/2 Ml Vial IV PUSH 10 mg Q6H PRN Administration Nausea And Vomiting Radiology Results: ITS Impressions Abdomen/Pelvis CT 12/23/22 06:03 IMPRESSION: 1. No acute abdominal abnormality. Labs Labs: Laboratory Results - last 24 hr 12/24/22 04:44 WBC 7.6 RBC 4.00 L Hgb 11.1 L Hct 34.5 L MCV 86.3 MCH 27.8 MCHC 32.2 RDW 13.2 Plt Count 268 MPV 9.6 Immature Gran % (Auto) 0.4 Neut % (Auto) 70.5 Lymph % (Auto) 19.6 [place] % (Auto) 9.4 H Eos % (Auto) 0.0 Baso % (Auto) 0.1 L Lymph # (Auto) 1.4
[2022-12-24] MEDS: SODIUM CHLORIDE 0.9% IV 1,000 ML 999 ML IV CONT (12:31)
[2022-12-24] MEDS: POTASSIUM CHLORIDE INJ 40 MEQ in SODIUM CHLORIDE 0.9% IV 500 ML 130 MEQ IVPB (13:45)
[2022-12-24 14:15] VITALS: BP 123/82; PULSE 89; RESP 18; TEMP 36.6; O2SAT 100
[2022-12-24 19:38] VITALS: PULSE 82; RESP 16; O2SAT 99
[2022-12-24 20:21] VITALS: BP 119/60; PULSE 77; RESP 17; TEMP 36.6; O2SAT 100
[2022-12-24] MEDS: SODIUM CHLORIDE 0.9% IV 1,000 ML 250 ML IV CONT (20:21)
[2022-12-25] MEDS: SODIUM CHLORIDE 0.9% IV 1,000 ML 250 ML IV CONT ×4 (02:20→10:41)
[2022-12-25 05:30] VITALS: BP 114/64; PULSE 66; RESP 17; TEMP 36.7; O2SAT 100
[2022-12-25 05:34] LABS: Basophils Percent Auto 0.3 % (0.2-1.2); Eosinophils Absolute Auto 0.1 K/mm3 (0-0.3); Eosinophils Percent Auto 0.8 % (0-4.4); Hematocrit 33.8 % (37.0-47.0); Hemoglobin 10.4 g/dL (12.0-15.0); Immature Granulocyte Absolute 0.04 K/mm3 (0.00-0.031); Immature Granulocyte Percent A 0.6 % (0-0.5); Lymphocytes Absolute Auto 2.84 K/mm3 (0.9-3.2); Lymphocytes Percent Auto 45.4 % (18.3-44.2); Mean Corpuscular HGB Conc 30.8 g/dl (32-36); Mean Corpuscular Hemoglobin 27.4 pg (26-34); Mean Corpuscular Volume 89.2 fl (80-100); Mean Platelet Volume 9.6 fl (7.4-10.4); Monocytes Absolute Auto 0.8 K/mm3 (0.1-0.6); Monocytes Percent Auto 13.3 % (2.6-8.5); Neutrophils Absolute Auto 2.5 K/mm3 (1.3-6.7); Neutrophils Percent Auto 39.6 % (45.5-73.1); Platelet Count Result 237 k/mm3 (150-375); Red Blood Count 3.79 M/mm3 (4.2-5.4); Red Cell Distribution Width 13.2 % (11.5-14.5); White Blood Count 6.3 K/mm3 (4.5-10.0)
[2022-12-25 05:40] LABS: Alanine Aminotransferase 21 U/L (6-35); Alkaline Phosphatase 36 U/L (38-126); Anion Gap 7 mmol/L (8-16); Aspartate Amino Transferase 23 U/L (14-36); Bilirubin,Total 0.5 mg/dL (0.2-1.3); Blood Urea Nitrogen 3 mg/dL (7-17); Calcium 7.6 mg/dL (8.4-10.2); Carbon Dioxide 21 mmol/L (22-30); Chloride 106 mmol/L (98-107); Estimated CRCL calculation 181 ml/min; Estimated Glomerular Filt Rate > 60; Glucose 78 mg/dL (65-110); Potassium 3.3 mmol/L (3.4-5.0); Sodium 134 mmol/L (137-145)
[2022-12-25 08:00] VITALS: O2SAT 97
[2022-12-25] MEDS: SERTRALINE HCL 50 MG TABLET PO (08:27)
[2022-12-25] MEDS: PANTOPRAZOLE SODIUM IV 40 MG VIAL IV PUSH (08:27)
--- NOTE | 2022-12-25 14:24 | PM.DS ---
DS: Admitting Diagnosis Discharge Date 12/25/22 Admitting Diagnosis weakness/NV DS: Discharge Diagnosis Discharge Diagnosis (1) Intractable cyclical vomiting with nausea: Code(s): R11.15 - Cyclical vomiting syndrome unrelated to migraine Status: Acute Assessment and Plan: IV fluids, antiemetics, supportive care (2) UTI (urinary tract infection): Code(s): N39.0 - Urinary tract infection, site not specified Status: Acute Assessment and Plan: Rocephin initiated 12/22, follow-up urine culture (3) Dehydration: Code(s): E86.0 - Dehydration Status: Acute Assessment and Plan: IV fluid resuscitation (4) Hyponatremia: Code(s): E87.1 - Hypo-osmolality and hyponatremia Status: Acute Assessment and Plan: Likely hypovolemic, see above Essentially unchanged, looks like she had a negative fluid balance despite IV fluids, will increase maintenance rate and give another bolus Plan DVT prophylaxis with SCDs GI prophylaxis not indicated Code status full code DS: Summary Hospital Course Hospital Course: 22-year-old female with history of cyclic vomiting syndrome and recent admission for UTI with dehydration is presenting with intractable nausea and vomiting.? Patient has longstanding history of recurrent cyclic vomiting syndrome episodes as well as UTI dehydration brain hospitalizations.? She was most recently discharged 12/10 for the same. In the ER, she was initiated on antiemetics and Rocephin for possible UTI given fluid rehydration after being found hyponatremic. Hyponatremia resolved, all symptoms improved. Please see above and [facility] rec for details. She was discharged in stable condition close outpatient follow-up. Time Spent with Patient Time attestation: Total time spent providing and/or coordinating discharge services: Exam Narrative: General: No acute distress, alert and oriented per baseline HEENT: Atraumatic, normocephalic, mucous membranes moist CV: Regular rate and rhythm, S1, S2 Lungs: Clear to auscultation bilaterally, no rales or crackles noted, no wheezes, good air entry Abdomen: Soft, nontender, nondistended Extremities: Normal to inspection Skin: No rashes noted, no lesions or wounds seen Psych: Euthymic, normal affect DS: Data Data Completed and Pending Labs on day of discharge: Labs from last 24 hours 12/25/22 04:54 WBC 6.3 RBC 3.79 L Hgb 10.4 L Hct 33.8 L MCV 89.2 MCH 27.4 MCHC 30.8 L RDW 13.2 Plt Count 237 MPV 9.6 Immature Gran % (Auto) 0.6 H Neut % (Auto) 39.6 L Lymph % (Auto) 45.4 H [place] % (Auto) 13.3 H Eos % (Auto) 0.8 Baso % (Auto) 0.3 Lymph # (Auto) 2.84 [place] # (Auto) 0.8 H Eos # (Auto) 0.1 Baso # (Auto) 0.0 Abs Immat Gran (auto) 0.04 H Absolute Neuts (auto) 2.5 Absolute Nucleated RBC 0.0 Nucleated RBC % 0.0 Sodium 134 L Potassium 3.3 L Chloride 106 Carbon Dioxide 21 L Anion Gap 7 L BUN 3 L Creatinine 0.40 L Estim Creat Clear Calc 181 Estimated GFR > 60 Glucose 78 Calcium 7.6 L Total Bilirubin 0.5 AST 23 ALT 21 Alkaline Phosphatase 36 L Total Protein 6.0 L Albumin 3.0 L Discharge Plan Discharge Attending physician on discharge: Dena Snow Discharging Clinician: Dena Snow Patient Disposition: Home, Self-Care Activity: as tolerated Diet: as tolerated Patient Instructions: Antibiotic Form, How to Stop Smoking (GEN), Urinary Tract Infection in Women (DC), Hyponatremia (DC), Acute Nausea and Vomiting (DC) Stand Alone Forms: General Discharge Information Follow-up/Referrals: Isabel Garcias MD [Primary Care Provider] - Discharge Medications: Continued methylphenidate HCl 54 mg tablet extended release 24hr 54 mg PO QAM Qty: 30 0RF Rx Instructions: DECEMBER sertraline 50 mg tablet 50 mg PO DAILY Qty: 90 3RF sumatriptan succinate 50 mg tablet 50 m
[2022-12-25 14:45] VITALS: BP 129/78; PULSE 70; RESP 16; TEMP 36.4; O2SAT 100
[2022-12-25] MEDS: POTASSIUM CHLORIDE 20 MEQ ER TABLET 40 MEQ PO (14:46)
== END 2022-12-25 15:45 | disposition home or self-care (01) ==
LOC: ANHED 06:39 → ANH2MED 08:36 → ANH3MEDSUR 12-26 10:16
PROVIDERS: Admitting Provider Student in an Organized Health Care Education/Training Program; Emergency Provider Emergency Medicine; PCP Family Medicine; Visit Provider Student in an Organized Health Care Education/Training Program
DX: R11.15 Cyclical vomiting syndrome unrelated to migraine (principal); N39.0 Urinary tract infection, site not specified; E86.0 Dehydration; E87.1 Hypo-osmolality and hyponatremia; F41.9 Anxiety disorder, unspecified; F32.A Depression, unspecified; L50.9 Urticaria, unspecified; Q79.60 Ehlers-Danlos syndrome, unspecified; Z86.16 Personal history of COVID-19; F17.290 Nicotine dependence, other tobacco product, uncomplicated; F10.90 Alcohol use, unspecified, uncomplicated; Z79.3 Long term (current) use of hormonal contraceptives; Z79.899 Other long term (current) drug therapy
CPT/HCPCS: 36415; 74177; 80053; 81001; 81025; 83605; 83690; 83735; 85025; 87086; 96361; 96365; 96366; 96375; 96376; 99285; A9270; C9113; G0378; J0696; J0780; J1200; J2270; J3480; J7030; J7040; Q9967

== ENCOUNTER 2023-09-07 16:12 | Observation (INO) | payer OTHER, SELFPAY ==
[2023-09-07 16:14] VITALS: BP 143/94; PULSE 92; RESP 16; TEMP 36.7; O2SAT 100
[2023-09-07 17:47] LABS: Basophils Percent Auto 0.1 % (0.2-1.2); Eosinophils Percent Auto 0.1 % (0-4.4); Hematocrit 39.9 % (37.0-47.0); Hemoglobin 13.5 g/dL (12.0-15.0); Immature Granulocyte Absolute 0.08 K/mm3 (0.00-0.031); Immature Granulocyte Percent A 0.5 % (0-0.5); Lymphocytes Absolute Auto 1.69 K/mm3 (0.9-3.2); Lymphocytes Percent Auto 11.5 % (18.3-44.2); Mean Corpuscular HGB Conc 33.8 g/dl (32-36); Mean Corpuscular Hemoglobin 28.7 pg (26-34); Mean Corpuscular Volume 84.9 fl (80-100); Mean Platelet Volume 9.4 fl (7.4-10.4); Monocytes Absolute Auto 0.7 K/mm3 (0.1-0.6); Neutrophils Absolute Auto 12.2 K/mm3 (1.3-6.7); Neutrophils Percent Auto 82.8 % (45.5-73.1); Platelet Count Result 417 k/mm3 (150-375); Red Cell Distribution Width 13.9 % (11.5-14.5); White Blood Count 14.7 K/mm3 (4.5-10.0)
--- NOTE | 2023-09-07 17:51 | ED.NAVMDI ---
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 Father is at bedside. Patient states for the past 3 days she has had difficulty keeping down food and fluids and has been vomiting green bile. States in June of 2023 she saw her GI doctor andFlorina Matute and had a gallbladder scan performed which showed an EF of 10%. She was started on Motegrity which seemed to have helped some until now. She states only Compazine and IV fluids seem to help her symptoms as well as hot showers. She denies alcohol or drug use including marijuana use. However she does admit that she used to use marijuana and stopped August 03 because she felt that the marijuana use was making her symptoms worse. She is reporting diffuse abdominal pain but denies focal abdominal pain, dysuria or hematuria, urinary frequency urgency, cough or congestion, known fevers. No prior abdominal surgeries. LMP around mid August. Patient states she feels dehydrated. <NANETTE Spaulding Last Filed: 09/07/23 21:06> Related Data Home medications: Home Medications Medication Instructions Recorded Confirmed amitriptyline 10 mg tablet 30 mg PO QHS 09/07/23 09/07/23 prucalopride 2 mg tablet 2 mg PO DAILY 09/07/23 09/07/23 (Motegrity) <NANETTE Spaulding Last Filed: 09/07/23 21:06> Allergies/Adverse reactions: Allergies Allergy/AdvReac Type Severity Reaction Status Date / Time ondansetron [From Zofran] AdvReac Mild not Verified 09/07/23 22:19 effective <NANETTE Spaulding Last Filed: 09/07/23 21:06> Review of Systems Review of Systems: CONSTITUTIONAL: Denies fever, chills, or sweats. EYES: Denies visual changes, redness, or discharge. ENT: Denies rhinorrhea, congestion, sore throat, or otalgia. CARDIOVASCULAR: Denies chest pain, palpitations, or edema. RESPIRATORY: Denies cough or dyspnea. GASTROINTESTINAL: see HPI GENITOURINARY: Denies dysuria or hematuria. SKIN: Denies rash or itching. MUSCULOSKELETAL: Denies back pain, joint pain, or myalgia. NEUROLOGIC: Denies headache, numbness, or weakness. PSYCHIATRIC: Denies anxiety or depression. <Manuela Culp PA-C - Last Filed: 09/07/23 21:06> [facility] Past Medical History Medical History: Medical History (Updated 09/07/23 @ 21:37 by Afua Abdi, EMILIANO) Anemia Attention-deficit hyperactivity disorder, other type Atypical squamous cells of undetermined significance (ASC-US) on cervical Pap smear hpv negative Chronic anxiety Concussion Cyclical vomiting Depression Bessy-Danlos disease Generalized anxiety disorder History of COVID-19 Left knee sprain Migraine without aura, not intractable, with status migrainosus <Manuela Culp PA-C - Last Filed: 09/07/23 21:06> Surgical History Surgical History: Surgical History No history of previous surgery <Manuela Culp PA-C - Last Filed: 09/07/23 21:06> Family History Family History: Family History Other No significant family history <Manuela Culp PA-C - Last Filed: 09/07/23 21:06> Social History Social History: Social History Social History: She reports she just graduated from [employer] with a BA in biology. She has not yet started looking for work. She has dating and sexually active. She drink
[2023-09-07 17:53] LABS: Appearance Urine Cloudy (Clear); Bacteria Urine 1+ /hpf; Bilirubin Urine Negative (Negative); Blood Urine Negative (Negative); Color Urine Yellow (Yellow); Glucose Urine UA Negative (Negative); Ketones Urine 4+ mg/dL (Negative); Leukocyte Esterase Ur Negative LEU/UL (Negative); Nitrate Urine Negative (Negative); Non Pathogenic Casts 0-2; Protein Urine 1+ mg/dL (Negative); RBC Urine 0-2 /hpf (0-2); Specific Grav Ur 1.037 (1.001-1.035); Squamous Epithelial Cell Urine Few /hpf (Few)
[2023-09-07] MEDS: PROCHLORPERAZINE EDISYLATE 10 MG/2 ML VIAL IV PUSH ×2 (17:53→21:31)
[2023-09-07] MEDS: SODIUM CHLORIDE 0.9% IV 1,000 ML 999 ML IV CONT (17:53)
[2023-09-07 17:58] LABS: Add Urine Microscopic? YES
[2023-09-07 18:07] VITALS: BP 144/99; PULSE 94; RESP 20; O2SAT 100
[2023-09-07 18:10] LABS: Alanine Aminotransferase 28 U/L (6-35); Albumin Level 5.4 g/dL (3.5-5.1); Alkaline Phosphatase 71 U/L (38-126); Anion Gap 22 mmol/L (4-12); Aspartate Amino Transferase 30 U/L (14-36); Bilirubin,Total 1.1 mg/dL (0.2-1.3); Blood Urea Nitrogen 18 mg/dL (7-17); Calcium 9.6 mg/dL (8.4-10.2); Carbon Dioxide 11 mmol/L (22-30); Chloride 103 mmol/L (98-107); Estimated CRCL calculation 125 ml/min; Estimated Glomerular Filt Rate > 60; Glucose 116 mg/dL (65-110); Lipase 69 U/L (23-300); Potassium 3.4 mmol/L (3.4-5.0); Sodium 136 mmol/L (137-145)
[2023-09-07 18:21] LABS: Pregnancy On Board Control Positive; Urine Pregnancy Test Negative
--- NOTE | 2023-09-07 18:32 | PC.NURSE ---
RT at bedside
[2023-09-07 18:43] LABS: Alveolar/Arterial O2 Gradient 14.9 mmHg; Base Excess ABG -8.9 mEq/l (+/-2.0); Fractional Inspired Oxygen 21 %; Oxygen Content ABG 15.3 %vol (16.0-22.0); Oxygen Saturation ABG 98.4 % (95.0-100.0); Oxyhemoglobin 97.6 % THb (90.0-100.0); PO2 ABG 112.2 mmHg (80.0-100.0); PO2 FiO2 Ratio Arterial Blood 5.34 %; pH ABG 7.455 (7.350-7.450)
[2023-09-07 18:46] LABS: Device ROOM AIR; PCO2 ABG 18.9 mmHg (35.0-45.0); Site Drawn RIGHT BRACHIAL
[2023-09-07] MEDS: DEXTROSE 50% 25 GM/50 ML SYRINGE IV PUSH (19:09)
[2023-09-07] MEDS: LACTATED RINGERS 1,000 ML 999 ML IV CONT ×2 (19:09→20:30)
[2023-09-07 20:32] VITALS: BP 124/82; PULSE 71; RESP 17; O2SAT 98
[2023-09-07 20:48] LABS: Lactic Acid Reflex 1.4 mmol/L (0.7-2.0)
[2023-09-07] MEDS: LORazepam INJ (*CRX) 2 MG/ML VIAL 0.5 MG IV PUSH (21:30)
[2023-09-07] MEDS: SODIUM CHLORIDE 0.9% IV 250 ML 999 ML (21:31)
[2023-09-07 21:33] VITALS: BP 129/85; PULSE 87; RESP 18; O2SAT 99
--- NOTE | 2023-09-07 21:35 | PM.IMHP ---
H&P: HPI History of Present Illness Date/Time: 09/07/23 21:35 Chief Complaint: Nausea and Vomiting Narrative: 23 y/o F presents here with nausea and vomiting with PMH of Bessy-Danlos Syndrome, anxiety, depression, ADHD, and migraines. The patient presents here with nausea and vomiting. Onset was 3 days ago and she has been having difficulty keeping food or drink down. Emesis appears as green bile. She has a history of Bessy-Danlos syndrome with intractable vomiting. The patient has also seen a GI specialist in June of this year (2023) per she had a gallbladder scan performed which showed it was functioning 10%. She was started on Motegrity which has helped her nausea and vomiting. Typically her nausea and vomiting response to Compazine, fluids, and hot showers. Does have history of marijuana use, last use August 03. No longer per takes because she believes the marijuana may be making her symptoms worse. Denies ETOH use. Today nausea and vomiting are accompanied by abdominal pain. She describes the abdominal pain as diffuse, nonradiating, constant, aggravated by vomiting, and alleviated by hot showers. Did have one episode of diarrhea a few days ago. Denying urinary symptoms, fever, chills, body aches, shortness of breath, chest pain. No previous history of abdominal surgeries. LMP mid August. Initial VS at presentation: 98.1? F, HR 92, RR 16, 143/94, and 100% on RA. ED workup showed: WBC 14.7, hemoglobin 13.5 (previous was 10.4 in 2022), platelet count 417, creatinine 0.6 and GFR >60, UA equivocal. Review of Systems Review of Systems: All systems reviewed & are unremarkable except as noted in HPI and below [facility] Past Medical History Medical History (Updated 09/07/23 @ 21:37 by Afua Abdi, EMILIANO) Anemia Attention-deficit hyperactivity disorder, other type Atypical squamous cells of undetermined significance (ASC-US) on cervical Pap smear hpv negative Chronic anxiety Concussion Cyclical vomiting Depression Bessy-Danlos disease Generalized anxiety disorder History of COVID-19 Left knee sprain Migraine without aura, not intractable, with status migrainosus Surgical History Surgical History No history of previous surgery Family History Family History Other No significant family history Social History Social History Social History: She reports she just graduated from [employer] with a BA in biology. She has not yet started looking for work. She has dating and sexually active. She drinks alcohol about once a month. She denies any illicit substance use. She does vape nicotine. She lives with her parents. Code status: Full code Surrogate decision maker: Mother Smoking status: Current every day smoker Tobacco type: e-cigarettes/vaping Alcohol intake: current Drinks per week: 1 Substance use: never Substance use type: does not use Lack of Transportation: No Lack of Food: Never True Current Housing: I Have Housing Concerned About Future Housing: No Difficulty Paying Gas/Electric Bills: No Difficulty Paying for Meds: No Currently Unemployed: No Education: Bachelor's Degree Difficulty w/ Childcare or Family Care: No Spiritual care concerns: No Meds Home Medications and Allergies Home Medications Medication Instructions Recorded Confirmed Type sumatriptan succinate 50 mg tablet 50 mg PO .COMPLEX #10 tabs 07/12/22 04/25/23 Rx triamcinolone acetonide 0.1 % 1 applic topical QID PRN Hives 12/23/22 04/25/23 History topical cream amitriptyline 10 mg tablet See Rx Instructions .Route 12/26/22 09/07/23 Rx .COMPLEX #270 tabs desogestrel-e.estradiol 0.15 See Rx Instructions .Route 04/02/23 09/07/23 Rx mg-0.02 mg(21)/e.estrad 0.01 mg(5) .COMPLEX #84 tabs
[2023-09-07 22:00] VITALS: BP 128/83; PULSE 107; RESP 18; TEMP 37; O2SAT 100
--- NOTE | 2023-09-07 22:15 | ADMGEN ---
This patient, Patricia Michelle, was admitted to Medical Room 341-01. Patient/family oriented to hospital policies and general routines including ID bracelet, bed and alarms, visiting hours, pain management, procedures, bathroom and other care routines, personal items, smoking policy, room service/diet, and visiting hours. Information on how to activate the Rapid Response Team has been discussed. Patient/Family are encouraged to report perceived risks to care and to ask questions if they do not understand what they are told or what they should do.
[2023-09-07 22:30] VITALS: BMI 28.0
[2023-09-07] MEDS: LACTATED RINGERS 1,000 ML 125 ML IV CONT (22:30)
[2023-09-07 22:32] VITALS: BP 144/82; PULSE 101; RESP 20; TEMP 37; O2SAT 98
[2023-09-07] MEDS: diphenhydrAMINE HCl INJ 50 MG/ML VIAL 25 MG IV PUSH (22:52)
[2023-09-07] MEDS: PANTOPRAZOLE SODIUM IV 40 MG VIAL IV PUSH (22:52)
--- NOTE | 2023-09-07 23:42 | PHAR ---
HOME MED VERIFIED MOTEGRITY 2MG TABLETS TAKE 1 TABLET DAILY
[2023-09-08 05:36] LABS: Basophils Percent Auto 0.3 % (0.2-1.2); Eosinophils Percent Auto 0.2 % (0-4.4); Hematocrit 27.2 % (37.0-47.0); Immature Granulocyte Absolute 0.06 K/mm3 (0.00-0.031); Immature Granulocyte Percent A 0.6 % (0-0.5); Lymphocytes Absolute Auto 3.38 K/mm3 (0.9-3.2); Lymphocytes Percent Auto 33.7 % (18.3-44.2); Mean Corpuscular HGB Conc 33.1 g/dl (32-36); Mean Corpuscular Hemoglobin 28.5 pg (26-34); Mean Corpuscular Volume 86.1 fl (80-100); Mean Platelet Volume 9.5 fl (7.4-10.4); Monocytes Absolute Auto 1.1 K/mm3 (0.1-0.6); Monocytes Percent Auto 10.8 % (2.6-8.5); Neutrophils Absolute Auto 5.5 K/mm3 (1.3-6.7); Neutrophils Percent Auto 54.4 % (45.5-73.1); Platelet Count Result 256 k/mm3 (150-375); Red Blood Count 3.16 M/mm3 (4.2-5.4)
[2023-09-08 05:54] LABS: Alanine Aminotransferase 13 U/L (6-35); Albumin Level 3.1 g/dL (3.5-5.1); Alkaline Phosphatase 42 U/L (38-126); Anion Gap 9 mmol/L (4-12); Aspartate Amino Transferase 19 U/L (14-36); Bilirubin,Total 0.7 mg/dL (0.2-1.3); Blood Urea Nitrogen 10 mg/dL (7-17); Calcium 7.9 mg/dL (8.4-10.2); Carbon Dioxide 19 mmol/L (22-30); Chloride 106 mmol/L (98-107); Estimated CRCL calculation 165 ml/min; Estimated Glomerular Filt Rate > 60; Glucose 87 mg/dL (65-110); Sodium 134 mmol/L (137-145)
[2023-09-08 06:00] VITALS: BP 105/74; PULSE 81; RESP 20; TEMP 36.8; O2SAT 99
[2023-09-08] MEDS: PANTOPRAZOLE SODIUM IV 40 MG VIAL IV PUSH (08:22)
[2023-09-08] MEDS: LACTATED RINGERS 1,000 ML 125 ML IV CONT ×2 (08:23→16:44)
[2023-09-08] MEDS: SERTRALINE HCL 50 MG TABLET PO (08:23)
[2023-09-08 09:46] LABS: Amphetamine Screen Urine Negative (Negative); Barbiturate Screen Urine Negative (Negative); Benzodiazepines Screen Urine Negative (Negative); Cannabinoid Screen Urine Positive (Negative); Cocaine Screen Urine Negative (Negative); Methadone Screen Urine Negative (Negative); Opiate Screen Urine Negative (Negative); Phencyclidine Screen Urine Negative (Negative)
--- NOTE | 2023-09-08 10:15 | PM.IMPN ---
Progress Note: A&P Assessment and Plan (1) Intractable vomiting with nausea: Code(s): R11.2 - Nausea with vomiting, unspecified Status: Acute Assessment and Plan: - test negative - antiemetics: compazine, one time dose of benadryl - IV fluids - UDS - clear liquids, advanced as tolerated to regular diet - suspect intractable vomiting secondary to hyper mobile Bessy-Danlos syndrome - trend renal function and CBC (2) Acute dehydration: Code(s): E86.0 - Dehydration Status: Acute Assessment and Plan: - IV fluids Plan The patient presents here with intractable nausea and vomiting for the past 3 days with bilious emesis. Suspect this is a recurrence of intractable vomiting secondary to hyper mobile Bessy-Danlos syndrome. Will treat with antiemetics and IV fluids. UDS pending. UA equivocal for UTI. No urinary symptoms. Follow UC. Home medications reviewed and resumed as appropriate. will consult GI Diet: Clear liquid, advanced as tolerated GI Prophylaxis: pantoprazole IVP QAM DVT Prophylaxis: low risk Lines: Peripheral Code Status: Full code Time Spent With Patient Time with patient: 25 - 35 minutes Subjective Date/time seen: 09/08/23 10:15 Interval history: 23 y/o F admitted with nausea and vomiting with PMH of Bessy-Danlos Syndrome, anxiety, depression, ADHD, and migraines. Onset was 3 days ago and she has been having difficulty keeping food or drink down. Emesis appears as green bile. She has a history of Bessy-Danlos syndrome with intractable vomiting. The patient has also seen a GI specialist in June of this year (2023) per she had a gallbladder scan performed which showed it was functioning 10%. She was started on Motegrity which has helped her nausea and vomiting. Typically her nausea and vomiting response to Compazine, fluids, and hot showers. Does have history of marijuana use, last use August 03. No longer per takes because she believes the marijuana may be making her symptoms worse. Denies ETOH use. Today nausea and vomiting are accompanied by abdominal pain. She describes the abdominal pain as diffuse, nonradiating, constant, aggravated by vomiting, and alleviated by hot showers. Did have one episode of diarrhea a few days ago. Denying urinary symptoms, fever, chills, body aches, shortness of breath, chest pain. No previous history of abdominal surgeries. LMP mid August. Initial VS at presentation: 98.1? F, HR 92, RR 16, 143/94, and 100% on RA. ED workup showed: WBC 14.7, hemoglobin 13.5 (previous was 10.4 in 2022), platelet count 417, creatinine 0.6 and GFR >60, UA equivocal. 7/6- pt was khai and examined. She denies any pain,n/v/d. Comfortable at the moment. GIven the history - will consult GI. If no intervention needed and stable- will anticipate discharge home tomorrow. Review of Systems Review of Systems: All systems reviewed & are unremarkable except as noted in HPI and below Constitutional: Constitutional: Denies chills ENT: Denies dysphagia Cardiovascular: Cardiovascular: Denies chest pain, Denies diaphoresis, Denies pedal edema and Denies leg edema Respiratory: Respiratory: Denies chest congestion and Denies cough Gastrointestinal: Comments: no acute complains at this time Exam Const: General: comfortable and no acute distress Other: , female, nontoxic appearance HENMT: Face/Nose/Sinus: Normal nares present Mouth: Yes dry mucous membranes Eyes: General: appearance normal, both eyes and all related structures Sclera: sclerae normal Pupils: Equal, round and reactive pupils present EOM: EOMs intact bilaterally Resp: Effort & Inspection: normal respiratory effort Auscultation: clear to auscultation bilaterally Cardio: Rate: regular rate Rhythm: regular rhythm Other: S1-S2 present without murmur, rub, ectopy GI: Other: Abdomen soft, nondistended, nontender Skin: General skin exam:
[2023-09-08] MEDS: PROCHLORPERAZINE EDISYLATE 10 MG/2 ML VIAL IV PUSH ×2 (13:50→20:19)
[2023-09-08 14:00] VITALS: PULSE 83; RESP 16; TEMP 36.8; O2SAT 100
[2023-09-08 14:39] VITALS: BP 140/91
[2023-09-08 19:17] VITALS: BP 141/75; PULSE 87; RESP 20; TEMP 36.7; O2SAT 99
[2023-09-08 20:00] VITALS: PULSE 87; RESP 20; O2SAT 99
[2023-09-08] MEDS: AMITRIPTYLINE HCL 10 MG TABLET 30 MG PO (20:18)
[2023-09-09] MEDS: LACTATED RINGERS 1,000 ML 125 ML IV CONT ×2 (00:55→09:41)
[2023-09-09 04:51] VITALS: BP 135/73; PULSE 90; RESP 18; TEMP 36.4; O2SAT 100
[2023-09-09] MEDS: PROCHLORPERAZINE EDISYLATE 10 MG/2 ML VIAL IV PUSH (04:54)
[2023-09-09] MEDS: PANTOPRAZOLE SODIUM IV 40 MG VIAL IV PUSH (09:46)
[2023-09-09] MEDS: SERTRALINE HCL 50 MG TABLET PO (09:46)
[2023-09-09 11:03] VITALS: O2SAT 98
[2023-09-09 14:02] VITALS: BP 141/88; PULSE 98; RESP 16; TEMP 35.9; O2SAT 100
--- NOTE | 2023-09-09 15:33 | WPDGICN ---
Assessment and Plan Assessment and plan (1) Intractable cyclical vomiting with nausea: Code(s): R11.15 - Cyclical vomiting syndrome unrelated to migraine Status: Acute Assessment and Plan: she has been in the hospital at least 5 times last 12 months with similar symptoms, it seems that she has cyclic vomiting- just recently stopped smoking marijuana continue supportive care, fluids, diet as tolerated, antiemetics will need to follow-up with her GI doctor as outpatient, also at some point complete gastric emptying study if not done probably also prophylaxis like elavil (2) Acute dehydration: Code(s): E86.0 - Dehydration Status: Acute Assessment and Plan: treating (3) Bessy-Danlos disease: Code(s): Q79.60 - Bessy-Danlos syndrome, unspecified Status: Acute (4) Chronic anxiety: Code(s): F41.9 - Anxiety disorder, unspecified Status: Acute (5) Constipation: Code(s): K59.00 - Constipation, unspecified Status: Acute Assessment and Plan: motegrity, also for dysmotility GI Consult Note Consult date/time: 09/09/23 15:33 Reason for consult: n/v HPI: Patricia Michelle is a 23 year old female with history of Bessy-Danlos syndrome with chronic nausea since 8 yo. She has seen a GI specialist earlier this in June, had EGD without major findings per patient, also HIDA scan that showed it was functioning 10%. She is taking at home compazine and motegrity for constipation and dysmotility (zofran does not work). Here with 3 days of intractable nausea and vomiting, unable to keep food or drink down. She used to smoke marijuana but last time August 03- she was told that probably playing a role on her symptoms. Review of Systems Constitutional: Constitutional: Denies chills Eyes: Eyes: Denies blurry vision ENT: Denies dysphagia Cardiovascular: Cardiovascular: Denies chest pain Respiratory: Respiratory: Denies cough Gastrointestinal: Gastrointestinal: Reports nausea and Reports vomiting Genitourinary: Genitourinary: Denies urinary urgency Musculoskeletal: Musculoskeletal: Denies neck pain Integumentary/Breasts: Skin/Breast: Denies rash Neurologic: Denies Abnormal speech present Psychiatric: Psychiatric: Denies confusion [facility] Past Medical History Medical History (Updated 09/09/23 @ 15:37 by Raghu Monahan MD) Anemia Attention-deficit hyperactivity disorder, other type Atypical squamous cells of undetermined significance (ASC-US) on cervical Pap smear hpv negative Chronic anxiety Concussion Constipation Cyclical vomiting Depression Bessy-Danlos disease Generalized anxiety disorder History of COVID-19 Left knee sprain Migraine without aura, not intractable, with status migrainosus Surgical History Surgical History No history of previous surgery Family History Family History Other No significant family history Social History Social History Social History: She reports she just graduated from [employer] with a BA in biology. She has not yet started looking for work. She has dating and sexually active. She drinks alcohol about once a month. She denies any illicit substance use. She does vape nicotine. She lives with her parents. Code status: Full code Surrogate decision maker: Mother Smoking status: Current every day smoker Tobacco type: e-cigarettes/vaping Additional smoking assessment comments: vapes daily, unsure amount Alcohol intake: never Drinks per week: 1 Substance use: former Substance use type: marijuana Do You Feel Safe in your Home?: Yes Lack of Transportation: No Lack of Food: Never True Current Housing: I Have Housing Concerned About Future Housing: No Difficul
--- NOTE | 2023-09-09 16:34 | PC.NURSE ---
RN spoke with Hospitalist Madelyn via telephone in regards to discharge and home medications. RN is unable to continue Methylphenidate due to it being a controlled medication. RN made hospitalist aware of this. Hospitalist instructed RN to put in discharge instructions to continue this medication per PCP.
--- NOTE | 2023-09-10 07:08 | PM.DS ---
DS: Admitting Diagnosis Discharge Date 09/09/23 Admitting Diagnosis n/v DS: Discharge Diagnosis Discharge Diagnosis (1) Intractable vomiting with nausea: Code(s): R11.2 - Nausea with vomiting, unspecified Status: Acute Assessment and Plan: - test negative - antiemetics: compazine, one time dose of benadryl - IV fluids - UDS - clear liquids, advanced as tolerated to regular diet - suspect intractable vomiting secondary to hyper mobile Bessy-Danlos syndrome - trend renal function and CBC (2) Acute dehydration: Code(s): E86.0 - Dehydration Status: Acute Assessment and Plan: - IV fluids Plan final dx: acute dehydration, Bessy-Danlos disease The patient presents here with intractable nausea and vomiting for the past 3 days with bilious emesis. Suspect this is a recurrence of intractable vomiting secondary to hyper mobile Bessy-Danlos syndrome. Will treat with antiemetics and IV fluids. UDS pending. UA equivocal for UTI. No urinary symptoms. Follow UC. Home medications reviewed and resumed as appropriate. will consult GI Diet: Clear liquid, advanced as tolerated GI Prophylaxis: pantoprazole IVP QAM DVT Prophylaxis: low risk Lines: Peripheral Code Status: Full code DS: Summary Hospital Course Hospital Course: 23 y/o F admitted with nausea and vomiting with PMH of Bessy-Danlos Syndrome, anxiety, depression, ADHD, and migraines. Onset was 3 days ago and she has been having difficulty keeping food or drink down. Emesis appears as green bile. She has a history of Bessy-Danlos syndrome with intractable vomiting. The patient has also seen a GI specialist in June of this year (2023) per she had a gallbladder scan performed which showed it was functioning 10%. She was started on Motegrity which has helped her nausea and vomiting. Typically her nausea and vomiting response to Compazine, fluids, and hot showers. Does have history of marijuana use, last use August 03. No longer per takes because she believes the marijuana may be making her symptoms worse. Denies ETOH use. Today nausea and vomiting are accompanied by abdominal pain. She describes the abdominal pain as diffuse, nonradiating, constant, aggravated by vomiting, and alleviated by hot showers. Did have one episode of diarrhea a few days ago. Denying urinary symptoms, fever, chills, body aches, shortness of breath, chest pain. No previous history of abdominal surgeries. LMP mid August. Initial VS at presentation: 98.1? F, HR 92, RR 16, 143/94, and 100% on RA. ED workup showed: WBC 14.7, hemoglobin 13.5 (previous was 10.4 in 2022), platelet count 417, creatinine 0.6 and GFR >60, UA equivocal. 7/6- pt was khai and examined. She denies any pain,n/v/d. Comfortable at the moment. GIven the history - will consult GI. If no intervention needed and stable- will anticipate discharge home tomorrow. gi saw her: it seems that she has cyclic vomiting- just recently stopped smoking marijuana continue supportive care, fluids, diet as tolerated, antiemetics will need to follow-up with her GI doctor as outpatient, also at some point complete gastric emptying study if not done probably also prophylaxis like elhawk covarrubias Time Spent with Patient Time attestation: Total time spent providing and/or coordinating discharge services: Exam Const: General: comfortable and no acute distress Other: , female, nontoxic appearance HENMT: Face/Nose/Sinus: Normal nares present Mouth: Yes dry mucous membranes Eyes: General: appearance normal, both eyes and all related structures Sclera: sclerae normal Pupils: Equal, round and reactive pupils present EOM: EOMs intact bilaterally Resp: Effort & Inspection: normal respiratory effort Auscultation: clear to auscultation bilaterally Cardio: Rate: regular rate Rhythm: regular rhythm Other: S1-S2 present without murmur, rub, ectopy GI: Other: Abdomen soft, nondis
== END 2023-09-09 16:55 | disposition home or self-care (01) ==
LOC: ANHED 21:06 → ANH3MED 21:43
PROVIDERS: Emergency Medicine; Student in an Organized Health Care Education/Training Program; Admitting Provider General Practice; Emergency Provider Physician Assistant; PCP Family Medicine; Visit Provider General Practice
DX: R11.15 Cyclical vomiting syndrome unrelated to migraine (principal); E87.29 Other acidosis; E86.0 Dehydration; K59.00 Constipation, unspecified; Q79.62 Hypermobile Ehlers-Danlos syndrome; F90.8 Attention-deficit hyperactivity disorder, other type; F41.1 Generalized anxiety disorder; F32.A Depression, unspecified; F17.290 Nicotine dependence, other tobacco product, uncomplicated
CPT/HCPCS: 36415; 36600; 80053; 80307; 81001; 81025; 82805; 83605; 83690; 85025; 87086; 96361; 96374; 96375; 99285; A9270; G0378; J0780; J1200; J2060; J2470; J7030; J7050; J7120

== ENCOUNTER 2024-05-11 09:44 | Emergency (ER) | payer BC, SELFPAY ==
--- OUTSIDE RECORDS SUMMARY | 2024-05-11 09:46 | XMS_ITS | Clinical Summary ---
Author Organization [facility] Address [address] [place] [address] Phone Care Team Providers Care Client Support Associate Name Role Phone Isabel Garcias MD Primary Care Provider Allergies No known active allergies Medications CONCERTA 36 MG Tablet Controlled Release TK 1 T PO QAM 0 09/09/2018 Active amitriptyline (ELAVIL) 10 MG Tablet 06/28/2018 Active raNITIdine (ZANTAC) 150 MG Tablet 06/28/2018 Active VIORELE 0.15-0.02/0.01 MG (23/07) Tablet 09/04/2018 Ac tive Active Problems No known active problems Social History Tobacco Use Types Packs/Day Years Used Date Smoking Tobacco: Never Smokeless Tobacco: Never Comments No Sex and Gender Information Value Date Recorded Sex Assigned at Not on file Legal Sex Female 7:17 PM CDT Gender Identity Not on file Sexual Orientation Not on file Last Filed Vital Signs Vital Sign Reading Time Taken Comments Blood Pressure 120/66 05/02/2020 3:58 PM FINISHING TECHNICIAN Pulse 96 05/02/2020 3:58 PM FINISHING TECHNICIAN Temperature 37 C (98.6 F) 05/02/2020 3:58 PM FINISHING TECHNICIAN Respiratory Rate 14 05/02/2020 3:58 PM FINISHING TECHNICIAN Oxygen Saturation 98% 05/02/2020 3:58 PM FINISHING TECHNICIAN Inhaled Oxygen Concentration - - Weight 83.9 kg (185 lb) 09/18/2018 2:44 PM CDT Height 171.5 cm (5' 7.5 ) 09/18/2018 2:44 PM CDT Body Mass Index 28.55 09/18/2018 2:44 PM CDT Plan of Treatment Health Maintenance Due Date Last Done Comments Hepatitis C Virus (HCV) Screening 2000 TdaP Immunization 2000 Meningococcal B Immunization (1 of 2 - Standard) 2016 Hepatitis B Immunization (1 of 3 - 19+ 3-dose series) 05/15/2019 Human Papillomavirus (HPV) Immunization (2 - 3-dose series) 05/15/2019 04/17/2019 Pap Smear 2021 Influenza Immunization (#1) 11/04/202304/05, 12/11/2017 SARS-COV-2 Immunization ( season) 2023 08/11/2020, 07/21/2020 Respiratory Syncytial Virus (RSV) Immunization (Adult) (1 - 1-dose 75+ series) 05/15/2075 Meningococcal Immunization (ACWY) Completed 12/11/2017 Hepatitis A Immunization Discontinued 04/17/2019 Pneumococcal Immunization Combined Aged Out No longer eligible based on patient's age to complete this topic Rotavirus Immunization Aged Out No lo nger eligible based on patient's age to complete this topic Care Teams Client Support Associate Relationship Specialty Start Date End Date Isabel Garcias MD PCP - General Family Medicine 09/18/18
--- OUTSIDE RECORDS SUMMARY | 2024-05-11 09:46 | XMS_ITS | Encounter Summary ---
Author Organization [facility] Address [address] [place] [address] Phone Care Team Providers Care Filtrose Crusher Name Role Phone Isabel Garcias MD Primary Care Provider + Encounter Details Date Type Department Care Team (Late st Contact Info) Description 07/12/2020 Orders Only [facility] Orthopaedic Surgery [address] [place] [address] [place] [address] [place] [address] Social History Tobacco Use Types Packs/Day Years Used Date Smoking Tobacco: Never Smokeless Tobacco: Never AUDIT-C Answer Date Recorded Q1: How often do you have a drink containing alc ohol? Never 06/23/2020 Average Number of Drinks Not on file 021 Q3: How often do you have si x or more drinks on one occasion? Never 06/23/2020 Comments No Sex and Gender Information Value Date Recorded Sex Assigned at Not on file Legal Sex Female 12:27 AM EXCEL DEVELOPER Gender Identity Not on file Sexual Orientation Not on file documented as of this encounter Plan of Treatment Not on file documented as of this encounter Visit Diagnoses Not on filedocumented in this encounter Care Teams Filtrose Crusher Relationship Specialty Start Date End Date Isabel Garcias MD PCP - General Family Medicine 12/29/19 documented as of this encounter
--- OUTSIDE RECORDS SUMMARY | 2024-05-11 09:46 | XMS_ITS | Referral Summary ---
Author Organization [facility] Address [address] [place] [address] Care Team Providers Care Carbon Lamp Cleaner Name Role Phone Isabel Garcias MD Primary Care Provider + Allergies No known active allergies Medications amitriptyline (ELAVIL) 10 mg tabletIndications: abdominal migraines Take 30 mg by mouth nightly 0 Active Viorele, 28, 0.15-0.02 mgx21 /0.01 mg x 5 per tabletIndications: Abnormal Uterine Bleeding Take 1 tablet by mouth every morning 0 Active methylphenidate ER (CONCERTA) 36 mg CR tabletIndications: Attention-Deficit Hyperactivity Disorder Take 36 mg by mouth every morning 0 Active sertraline (ZOLOFT) 25 mg tabletIndications: Generalized Anxiety Disorder Take 25 mg by mouth every morning 1 Active SUMAtriptan (IMITREX) 50 mg tablet Take 50 mg by mouth once as needed for migraine 1 Active HYDROcodone-acetam inophen (NORCO) 5-325 mg per tabletIndications: Pain TAKE 1 TABLET EVERY 4-6 HOURS NEEDED FOR PAIN 20 tablet 1 Active Active Problems Problem Noted Date Diagnosed Date Cyclic vomiting syndrome 11/03/2023 Patellar instability of left knee 06/16/2020 Overview (06/16/2020): Added automatically from request for surgery [id number] Knee pain 01/13/2015 Pneumonia 12/29/2011 Overview (06/07/2016): Pneumonia Asthma 12/20/2011 Overview (06/07/2016): Asthma Adiposity 12/20/2011 Overview (06/09/2016): Obesity Migraine 12/20/2011 Overview (06/09/2016): Migraine Medical examinations/reports status 12/20/2011 Overview (06/09/2016): Health care maintenance Normocytic anemia 12/20/2011 Overview (06/09/2016): Normocytic anemia Myopia 12/20/2011 Overview (06/09/2016): Myopia Atypical nevus 12/20/2011 Overview (06/09/2016): Atypical nevi Vomiting 07/02/2009 Overview (07/16/2020): Last Assessment & Plan: Assessment: Patricia is a 14 y.o. Female with past medical history of anxiety, remote history of cyclic vomiting syndrome, abdominal migraines who presents with acute onset of central abdominal pain and NBNB emesis x1 day, admitted for poor PO intake. Plan: 1. Advance to regular diet as tolerated 2. Wean IVF, encourage liquid PO intake to discontinue IVF 3. Acetaminophen 650 mg Q4 PRN for pain 4. Discontinue zofran 5. Discharge home once tolerating regular diet Last Assessment & Plan: Assessment: Patricia is a 14 y.o. Female with past medical history of anxiety, remote history of cyclic vomiting syndrome, abdominal migraines who presents with acute onset of central abdominal pain and NBNB emesis x1 day, admitted for poor PO intake. Plan: 1. Advance to regular diet as tolerated 2. Wean IVF, encourage liquid PO intake to discontinue IVF 3. Acetaminophen 650 mg Q4 PRN for pain 4. Discontinue zofran 5. Discharge home once tolerating regular diet Immunizations Immunization Administration Dates Next Due DTaP 03/29/2005, 2,2000,09/28,2000 Hep B, Adolescent or Pediatric 2000,2000,2000 Hib (HbOC) 08/14/2001, 1,2000,07/18 IPV 03/29/2005, 2,2000,07/18 Influenza, Split 01/27/2013,12/25/2011 Influenza, Trivalent, Preser vative Free, Intramuscular 01/24/2011 MMR 03/29/2005,05/15/2001 Meningococcal MCV4P (Menactra) 09/25/2011 Pneumococcal Conjugate 7-Valent 08/15/19 02,2000,2000,07/18 Tdap 09/25/2011 Varicella 02/20/2006,05/15/2001 Social History Tobacco Use Types Packs/Day Years Used Date Smoking Tobacco: Never Smokeless Tobacco: Never AUDIT-C Answer Date Recorded Q1: How often do you have a drink containing alc ohol? Never 06/23/2020 Average Number of Drinks Not on file 021 Q3: How often do you have si x or more drinks on one occasion? Never 06/23/2020 Personal Safety Answer Date Recorded Have you ever been in or are you currently in a harmful physical or emotional relationship or is someone making you feel afraid or unsafe? 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 Gender Identity Not on file Sexual Orientation Not on file Last Filed Vital Signs Vital Sign Reading Time Taken Comments Blood Pressure 110/72 11/03/2023 11:33 AM CDT Pulse 98 11/03/2023 11:33 AM CDT Temperature 36.6 C (97.9 F) 11/03/2023 11:33 AM CDT Respiratory Rate 18 11/03/2023 11:33 AM CDT Oxygen Saturation 100% 11/03/2023 11:33 AM CDT Inhaled Oxygen Concentration - - Weight 68.5 kg (151 lb) 11/02/2023 8:19 PM CDT Height 172.7 cm (5' 8 ) 11/02/2023 8:19 PM CDT Body Mass Index 22.96 11/02/2023 8:19 PM CDT Plan of Treatment Not on file Medical Devices Implanted Type Area Social Economist Device Identifier Shelf Expiration Date Model / Serial / Lot [employer] [id number] Suturetak Tigerwire 3mm 14.5mm 2 [place] Suture Fiberwire - [id number] Implanted:Qty: 1 on 07/06/2020 by Tone Orosco MD at [facility] Left: Knee [employer] 11/03/2023 [id number]- [id number] / / [id number] Insurance [id number] CHOICE PLUS [facility] CHOICE PLUS Care Teams Carbon Lamp Cleaner Relationship Specialty Start Date End Date Isabel Garcias MD PCP - General Family Medicine 12/29/19
--- OUTSIDE RECORDS SUMMARY | 2024-05-11 09:46 | XMS_ITS | Clinical Summary ---
Author Organization [facility] Address [address] [place] [address] Care Team Providers Care Horseradish Maker Name Role Phone Isabel Garcias MD Primary [...] (06/16/2020): Added automatically from request for surgery [id number] Knee pain 01/13/2015 Pneumonia 12/29/2011 Overview (06/07/2016): [...] 7-Valent 08/15/19 02,2000,2000,07/18 Tdap 09/25/2011 Varicella 02/20/2006,05/15/2001 Surgical History Surgery Date Site/Laterality Comments OTHER SURGICAL HISTORY Bronchiolitis: Admit. OTHER SURGICAL HISTORY Fever ? UTI: [facility] WISDOM TOOTH EXTRACTION ESOPHAGOGASTRODUODENOSCOPY OTHER SURGICAL HISTORY stye removed from eyelid Medical History Medical History Date Comments Bronchiolitis 2001 Bronchiolitis Hx Other Medical 2010 Fever ? UTI Hx Other Medical 2005 Chalazion R exc ised Hx Other Medical 2007 Elbow FX Abdominal migraine, not intractable Abdominal migraine - (Added by TW Conv) Family History Medical History Relation Name Comments ADD / ADHD Father ADD/ADHD; on Co ncerta 54 Migraines Mother Migraine; Other Mother Otitis recurren t; Other Other 2 Family history of arrhthmia/pacemaker; Coronary artery disease Other 3 Fami ly history of Coronary artery disease; Diabetes Other 4 Family history of Diabetes mellitus; Hyperlipidemia Other 5 Family histor y of Hyperlipidemia; Migraines Other 6 Family history of Migraines; Other Other 7 No family histo ry of Sudden <50; Macular degeneration Other 8 Family history of Macular degeneration; Stargardt's dis. Need ophtalmology after age 8. Diabetes Other 9 Family history of diabetes mellitus - Relation: Grandparent (Added by TW Conv) Arthritis Other 10 Family history of arthritis - Relation: Grandparent (Added by TW Conv) Anesthesia problems Neg Hx Relation Name Status Comments Father Alive Mother Other 1 Alive Other 2 Other 3 Other 4 Other 5 Other 6 Other 7 Other 8 Other 9 Other 10 Social History Tobacco Use Types Packs/Day Years [...] on file Legal Sex Female 12:27 AM CLAIM AGENT Gender Identity Not on file Sexual Orientation Not on file Obstetrics History Last Filed Vital Signs Vital Sign Reading [...] 11/02/2023 8:19 PM CDT Plan of Treatment Health Maintenance Due Date Last Done Comments Cervical Cancer Screening 2000 Depression Screening 2000 Hepatitis C Screening 2000 Pneumococcal vaccine <65 (1 of 1 - PPSV23) 2006 08/14/2001, 2000, 2000, Additional history exists Meningococcal B Vaccine (1 o f 2 - Standard) 2016 Regular Well Visit/Exam 18-64 2018 HPV Vaccines (2 - 3-dose series) 05/15/2019 04/17/19 20 DTaP/Tdap/Td Vaccine (7 - Td or Tdap) 09/24/2021 09/25/2011, 03/29/2005, 08/14/2001, Additional history exists Influenza Vaccine (#1) 2023 , 12/11/2017, 01/27/2013, Additional history exists Hepatitis B Screening Completed 2000 , 2000, 2000 Varicella Vaccines Completed 02/20/2006, 05/15/2001 Medical Devices Implanted Type Area Water Purifier Operator Device Identifier Shelf Expiration Date Model / Serial / Lot [employer] [id number] Suturetak Tigerwire 3mm 14.5mm 2 [place] Suture Fiberwire - [id number] Implanted:Qty: 1 on 07/06/2020 by Tone Orosco MD at [facility] Left: Knee [employer] 11/03/2023 [id number]- [id number] / / [id number] Insurance CHOICE PLUS [employer] CHOICE PLUS Care Teams Horseradish Maker Relationship Specialty Start Date End Date Isabel Garcias MD PCP - General Family Medicine 12/29/19
--- OUTSIDE RECORDS SUMMARY | 2024-05-11 09:46 | XMS_ITS | Patient Health Summary ---
Author Organization [facility] Address [address] [facility] [place] [address] Care Team Providers Care Forming Machine Upkeep Mechanic Helper Name Role Phone Isabel Garcias MD Primary Care Provider [phone] Note from [facility],non-owned Affiliates and Associated Physician Practices is amultiple site organization consisting of ambulatory clinics and hospital sitesin [place], [place], [place] and [place]. This disclosure is being madepursuant to the Care Everywhere program and may not contain all information available regarding this patient. Last updated 17.[facility] Allergies No known active allergies Medications * Be aware that medications may not be up to date on this document. Alwaysverify current medications with the patient. * amitriptyline (ELAVIL) 25 MG tablet Take 25 mg by mouth at bedtime * ibuprofen (MIDOL) 200 MG capsule Take 200 mg by mouth 4 times daily as needed for Pain Active Problems Problem Noted Date Diagnosed Date Vomiting 07/02/2009 Social History Tobacco Use Types Packs/Day Years Used Date Smoking Tobacco: Never Alcohol Use Standard Drinks/Week Comments No 0 (1 standard drink = 0.6 oz pur e alcohol) Sex and Gender Information Value Date Recorded Sex Assigned at Not on file Gender Identity Not on file Sexual Orientation Not on file Last Filed Vital Signs Vital Sign Reading Time Taken Comments Blood Pressure 116/64 09/15/2014 11:50 AM CDT Pulse 80 09/15/2014 11:50 AM CDT Temperature 36.7 C (98 F) 09/15/2014 11:50 AM CDT Respiratory Rate 20 09/15/2014 11:50 AM CDT Oxygen Saturation 100% 09/14/2014 3:30 PM CDT Inhaled Oxygen Concentration - - Weight 77 kg (169 lb 12.1 oz) 09/14/2014 2:09 PM CDT Height 141.1 cm (4' 7.55 ) 10/28/2009 4:02 PM CD T Body Mass Index - - Procedures * HCG URINE QUALITATIVE(Performed 09/15/2014) * URINE MICROSCOPIC ONLY(Performed 09/14/2014) * URINALYSIS REFLEX TO MICROSCOPIC NO CULTURE(Performed 09/14/2014) * DIFFERENTIAL MANUAL(Performed 09/14/2014) * CBC W AUTO DIFFERENTIAL(Performed 09/14/2014) * LIPASE BLOOD(Performed 09/14/2014) * AMYLASE BLOOD(Performed 09/14/2014) * ALT(Performed 09/14/2014) * AST BLOOD(Performed 09/14/2014) * BASIC METABOLIC PANEL (CALCIUM TOTAL)(Performed 09/14/2014) * GROSS + MICRO EXAM(Performed 06/07/2009) * HELICOBACTER PYLORI UREASE(Performed 06/07/2009) * CORTISOL BLOOD AM(Performed 06/05/2009) * BASIC METABOLIC PANEL (CALCIUM TOTAL)(Performed 06/05/2009) * URINALYSIS REFLEX TO MICROSCOPIC NO CULTURE(Performed 06/05/2009) * GLUCOSE(Performed 06/04/2009) * LYTES (NA K CL CO2) BLOOD(Performed 06/04/2009) * LIPASE BLOOD(Performed 06/04/2009) * CREATININE BLOOD(Performed 06/04/2009) * BUN(Performed 06/04/2009) * CBC W/O DIFFERENTIAL(Performed 06/04/2009) * XR ABD OBSTRUCTION SERIES 2VW(Performed 06/04/2009) * GLUCOSE(Performed 06/04/2009) * CREATININE BLOOD(Performed 06/04/2009) * BILIRUBIN TOTAL BLOOD(Performed 06/04/2009) * ALBUMIN BLOOD(Performed 06/04/2009) * LYTES (NA K CL CO2) BLOOD(Performed 06/04/2009) * ALT(Performed 06/04/2009) * AST BLOOD(Performed 06/04/2009) * PROTEIN TOTAL BLOOD(Performed 06/04/2009) * CALCIUM BLOOD(Performed 06/04/2009) * BUN(Performed 06/04/2009) * ALKALINE PHOSPHATASE BLOOD(Performed 06/04/2009) * URINALYSIS REFLEX TO MICROSCOPIC NO CULTURE(Performed 06/03/2009) * CULTURE URINE(Performed 06/03/2009) * DIFFERENTIAL MANUAL(Performed 06/03/2009) * COMPREHENSIVE METABOLIC PANEL(Performed 06/03/2009) * CBC W AUTO DIFFERENTIAL(Performed 06/03/2009) * FL UGI SERIES(Performed 04/26/2009) Performed for Vomiting Alone * CT HEAD WO CONTRAST(Performed 04/15/2009) Performed for Headache * URINALYSIS REFLEX TO MICROSCOPIC NO CULTURE(Performed 03/21/2009) * CULTURE URINE(Performed 03/21/2009) * LIPASE BLOOD(Performed 03/21/2009) * COMPREHENSIVE METABOLIC PANEL(Performed 03/21/2009) * AMYLASE BLOOD(Performed 03/21/2009) * CBC W AUTO DIFFERENTIAL(Performed 03/21/2009) * XR ABD OBSTRUCTION SERIES 2VW(Performed 03/21/2009) * URINALYSIS REFLEX TO MICROSCOPIC NO CULTURE(Performed 03/21/2009) * CULTURE URINE(Performed 03/21/2009) * US KIDNEY(Performed 03/20/2009) * OCCULT BLOOD EMESIS(Performed 03/20/2009) Results * HCG URINE QUALITATIVE (09/15/2014 4:51 AM CDT) Pathologist [facility] hCG Qualitative Urine Negative Negative 09/15/2014 5:09 AM CDT [facility] Urine URINE / Unknown 09/15/2014 4 :51 AM CDT 09/15/2014 5:00 AM CDT Cait Butts MD LAB - URINALYSIS ORD ERABLES Performing Organization Address City/State/RUST Co de Phone Number [facility] [place] [address] * (ABNORMAL) URINALYSIS ROUTINE AUTO (09/14/2014 10:35 PM CDT) Only the most recent of5 resultswithin the time period is included. Color UA Red(A) Straw, Yellow, Dark Yellow 09/14/2014 10:49 PM CDT [facility] Clarity UA Clear 09/14/2014 10:49 PM CDT [facility] Specific [place] UA 1.020 1.005 - 1.030 09/14/2014 10:49 PM CDT [facility] pH UA 7.5 5.0 - 8.0 pH 09/14/2014 10:49 PM T [facility] Protein UA 1+(A) Negative 09/14/2014 10:49 PM CDT [facility] Blood UA 3+(A) Negative 09/14/2014 10:49 PM T [facility] Leukocyte UA Trace(A) Negative 09/14/2014 10:49 PM CDT [facility] Nitrite UA Negative Negative 09/14/2014 10:49 PM T [facility] Glucose UA Negative Negative 09/14/2014 10:49 PM T [facility] Ketone UA 3+(AA) Negative 09/14/2014 10:49 PM T [facility] Bilirubin UA Negative Negative 09/14/2014 10:49 PM T [facility] Urobilinogen UA 0.2 0.1 - 1.0 EU/dL 09/14/2014 10:49 PM T [facility] Urine URINE SPECIMEN OBTAINED BY CLEAN CATCH PROCEDURE / Unknown 09/14/2014 10:35 PM CDT 09/14/2014 10:43 PM CDT Danika Wellington MD LAB - URINALYSIS O RDERABLES Performing Organization Address City/State/[place]UST Co de Phone Number [facility] [address] [place] [phone] * (ABNORMAL) URINALYSIS MICROSCOPIC ONLY (09/14/2014 10:35 PM CDT) RBC UA >100(A) 0-2, 2-5 # /hpf 09/14/2014 10:57 PM T [facility] WBC UA 5-10(A) 0-2, 2-5 # /hpf 09/14/2014 10:57 PM T [facility] Bacteria UA Trace None Seen, Trace 09/14/2014 10:57 PM CDT [facility] Epithelial Cell UA 2-5 0-2, 2-5 09/14/2014 10:57 PM T [facility] Urine URINE SPECIMEN OBTAINED BY CLEAN CATCH PROCEDURE / Unknown 09/14/2014 10:35 PM CDT 09/14/2014 10:43 PM CDT Danika Wellington MD LAB - URINALYSIS O RDCONCHITA [facility] [address] [place] [address] * (ABNORMAL) DIFFERENTIAL MANUAL (09/14/2014 7:45 PM CDT) Only the most recent of2 resultswithin the time period is included. [facility] WBC Auto 12.5 4.5 - 14.5 x10^9/L 09/14/2014 8:26 PM CDT [facility] WBC Corrected 4.5 - 14.5 x10^9/L 09/14/2014 8:26 PM T [facility] nRBC /100 WBC 09/14/2014 8:26 PM T [facility] Neutrophil % Manual 91(H) 24 - 66 % 09/14/2014 8:26 PM T [facility] Lymphocytes % Manual 5(L) 22 - 61 % 09/14/2014 8:26 PM T [facility] Monocytes % Manual 3 3 - 15 % 09/14/2014 8:26 PM T [facility] Band % Manual 1 % 09/14/2014 8:26 PM T [facility] Cells Counted 100 # cells 09/14/2014 8:26 PM T [facility] Platelet Estimation Adequate platelets Normal, Adequate platelets 09/14/2014 8:26 PM T [facility] Comment:Some platelet clumps present RBC Morphology Normal 09/14/2014 8:26 PM T [facility] WBC Morph Normal 09/14/2014 8:26 PM T [facility] Blood BLOOD SPECIMEN / Unknown 09/14/2014 7:45 PM CDT 09/14/2014 7:47 PM CDT Danika Wellington MD LAB - HEMATOLOGY O RDERAZENY [facility] [address] [place] [address] * (ABNORMAL) CBC W AUTO DIFFERENTIAL (09/14/2014 7:45 PM CDT) Only the most recent of3 resultswithin the time period is included. [facility] WBC 12.5 4.5 - 14.5 x10^9/L 09/14/2014 7:57 PM CDT [facility] WBC Corrected x10^9/L 09/14/2014 7:57 PM T [facility] RBC 4.20 4.10 - 5.10 x10^12/L 09/14/2014 7:57 PM T [facility] Hemoglobin 11.6(L) 12.0 - 16.0 gm/dL 09/14/2014 7:57 PM T [facility] Hematocrit 35.3(L) 36.0 - 47.0 % 09/14/2014 7:57 PM T [facility] MCV 84.0 78.0 - 98.0 fl 09/14/2014 7:57 PM CDT [facility] MCH 27.6 25.0 - 35.0 pg 09/14/2014 7:57 PM CDT [facility] MCHC 32.9 31.0 - 37.0 gm/dL 09/14/2014 7:57 PM T [facility] Platelet Count 152 100 - 400 x10^9/L 09/14/2014 7:57 PM T [facility] RDW-CV 13.0 11.5 - 14.0 % 09/14/2014 7:57 PM T [facility] MPV 10.4(H) 6.0 - 9.5 fl 09/14/2014 7:57 PM T [facility] Hematology Reflex Status Manual Diff to follow 09/14/2014 7:57 PM [facility] Blood BLOOD SPECIMEN / Unknown 09/14/2014 7:45 PM CDT 09/14/2014 7:47 PM CDT Danika Wellington MD LAB - HEMATOLOGY O RDERABLES [facility] [place] [address] * (ABNORMAL) BASIC METABOLIC PANEL (CALCIUM TOTAL) (09/14/2014 3:46 PM CDT) Only the most recent of2 resultswithin the time period is included. Pathologist [facility] Glucose 121(H) 70 - 105 mg/dL 09/14/2014 4:07 PM CDT [facility] Sodium 141 136 - 145 mmol/L 09/14/2014 4:07 PM T [facility] Potassium 3.5 3.5 - 5.1 mmol/L 09/14/2014 4:07 PM T [facility] Chloride 107 98 - 107 mmol/L 09/14/2014 4:07 PM T [facility] CO2 17(L) 20 - 28 mmol/L 09/14/2014 4:07 PM T [facility] Calcium 9.48 8.92 - 10.32 mg/dL 09/14/2014 4:07 PM [facility] Anion Gap 17 5 - 20 mmol/L 09/14/2014 4:07 PM T [facility] BUN 10.5 6.1 - 21.0 mg/dL 09/14/2014 4:07 PM [facility] Creatinine 0.45(L) 0.62 - 1.00 mg/dL 09/14/2014 4:07 PM T [facility] eGFR by MDRD mL/min/1. 73m2 09/14/2014 4:07 PM [facility] Comment: eGFR calculations are not performed for children under 18 years old. eGFR by MDRD mL/min/1. 73m2 09/14/2014 4:07 PM [facility] Comment: eGFR calculations are not performed for children under 18 years old. Blood BLOOD SPECIMEN / Unknown 09/14/2014 3:46 PM CDT 09/14/2014 3:55 PM CDT Abel Barron MD LAB - CHEMISTRY SARAH ISIDRO [facility] Organization Address City/State/[place]UST Co de Phone Number [facility] [address] [place] [address] * ALT (09/14/2014 3:46 PM CDT) Only the most recent of2 resultswithin the time period is included. ALT 11 8 - 65 U/L 09/14/2014 7:49 PM CDT [facility] Blood BLOOD SPECIMEN / Unknown 09/14/2014 3:46 PM CDT 09/14/2014 7:32 PM CDT Abel Barron MD LAB - CHEMISTRY SARAH ISIDRO Performing Organization Address [facility]/[place] Co de Phone Number [facility] [address] [place] [phone] * AST BLOOD (09/14/2014 3:46 PM CDT) Only the most recent of2 resultswithin the time period is included. AST 15 3 - 35 U/L 09/14/2014 7:49 PM CDT [facility] Blood BLOOD SPECIMEN / Unknown 09/14/2014 3:46 PM CDT 09/14/2014 7:32 PM CDT Able Barron MD LAB - CHEMISTRY SARAH ISIDRO Performing Organization Address [facility]/[place] Co de Phone Number [facility] [address] [place] [phone] * (ABNORMAL) LIPASE BLOOD (09/14/2014 3:46 PM CDT) Only the most recent of3 resultswithin the time period is included. Lipase 7(L) 10 - 220 U/L 09/14/2014 7:49 PM CDT [facility] Blood BLOOD SPECIMEN / Unknown 09/14/2014 3:46 PM CDT 09/14/2014 7:33 PM CDT Abel Barron MD LAB - CHEMISTRY SARAH ISIDRO Performing Organization Address [facility]/[place] Co de Phone Number [facility] [address] [place] [phone] * AMYLASE BLOOD (09/14/2014 3:46 PM CDT) Only the most recent of2 resultswithin the time period is included. Amylase 46 5 - 65 U/L 09/14/2014 7:49 PM CDT [facility] Blood BLOOD SPECIMEN / Unknown 09/14/2014 3:46 PM CDT 09/14/2014 7:32 PM CDT Abel Barron MD LAB - CHEMISTRY SARAH ISIDRO [facility] [place] [address] * GROSS + MICRO EXAM (06/07/2009 10:30 AM CDT) [facility] Clinical History [facility] Comment: The patient is a 9-year-old female with vomiting and epigastric pain who underwent upper endoscopy which revealed gastritis. Gross Description [facility] Comment: The specimens are received fixed in formalin in three containers for gross and microscopic examination. All containers are labeled with the patient's name, Patricia Michelle. Specimen A, duodenum, consists of four soft, yellow-olson tissue fragments, ranging in size from less than 1 mm to 4 mm in greatest dimension. The specimen is submitted in toto in cassette A. Specimen B, stomach, consists of two soft, yellow-olson tissue fragments, ranging in size from 2 to 4 mm in greatest dimension. The specimen is submitted in toto in cassette B. Specimen C, esophagus, consists of three 0.2 cm in greatest dimension, soft, pink-white tissue fragments, submitted in toto in cassette C. (RL/nab) Microscopic Examination [facility] Comment: A) 3 H+E; B) 3 H+E; C) 3 H+E Sections of duodenum show unremarkable small bowel mucosa with Brunners' glands. Sections of stomach show unremarkable gastric mucosa and small bowel mucosa with Brunners' glands. Sections of esophagus show increased intraepithelial lymphocytes and basal hyperplasia. (RL/nab) Diagnosis [facility] Comment: DIAGNOSIS: A) DUODENUM, BIOPSY: -NO PATHOLOGIC DIAGNOSIS. B) STOMACH, BIOPSY: -NO PATHOLOGIC DIAGNOSIS. DUODENUM, BIOPSY: -NO PATHOLOGIC DIAGNOSIS. C) ESOPHAGUS, BIOPSY: -MILD ESOPHAGITIS. This case has been personally reviewed and interpreted by the attending (teaching) pathologist. Marble Polisher SARAH LOUIS, [facility] Pathologist Denis sewell M.D. [facility] Electronically Signed By Bam MoralesD. [facility] PART OF DUODENUM / Unknown 06/07/2009 10:30 AM CDT Lonnie Frankel MD LAB - PATHOLOGY/CYTO LOGY ORDERABLES Performing Organization Address [facility]/ZIP Co de Phone Number [facility] * HELICOBACTER PYLORI UREASE (06/07/2009 10:30 AM CDT) Report [facility] Comment: Final - CULTURE Negative Rapid Urease Test for Helicobacter pylori. TISSUE SPECIMEN / Unknown 06/07/2009 10:30 AM CDT Lonnie Frankel MD LAB - MICROBIOLOGY O RDERABLES Performing Organization Address [facility]/[place] Co de Phone Number [facility] * CORTISOL BLOOD AM (06/05/2009 5:40 AM CDT) Cortisol AM 26.8 4.2 - 38.4 mcg/dl [facility] BLOOD SPECIMEN / Unknown 06/05/2009 5:40 AM CDT Lonnie Frankel MD LAB - CHEMISTRY SARAH ISIDRO Performing Organization Address [facility]/[place] Co de Phone Number [facility] * (ABNORMAL) CBC W/O DIFFERENTIAL (06/04/2009 4:45 PM CDT) WBC 8.11 4.5 - 14.5 K/cumm [facility] RBC 4.16 4.00 - 5.20 mill/cumm [facility] Hemoglobin 11.5(DE) 11.5 - 15.5 gm/dl [facility] Hematocrit 31.5(DL) 35.0 - 45.0 % [facility] MCV 75.7(L) 77.0 - 95.0 cu microns [facility] MCH 27.6 25.0 - 33.0 uug [facility] MCHC 36.5 31.0 - 37.0 % [facility] RDW 13.0 % [facility] MPV 8.9 fl [facility] Platelet Count 373 100 - 400 K/cumm [facility] BLOOD SPECIMEN / Unknown 06/04/2009 4:45 PM CDT Lonnie Frankel MD LAB - HEMATOLOGY ORD CONCHITA Performing Organization Address [facility]/ZIP Co de Phone Number [facility] * GLUCOSE (06/04/2009 4:45 PM CDT) Only the most recent of2 resultswithin the time period is included. Glucose 92 70 - 106 mg/dl [facility] Specimen Type/Conditio n no visible hemolysis [facility] BLOOD SPECIMEN / Unknown 06/04/2009 4:45 PM CDT Lonnie Frankel MD LAB - CHEMISTRY SARAH ISIDRO Performing Organization Address [facility]/[place] Co de Phone Number [facility] * (ABNORMAL) LYTES (NA K CL CO2) BLOOD (06/04/2009 4:45 PM CDT) Only the most recent of2 resultswithin the time period is included. Sodium 131(L) 137 - 145 mmol/L [facility] Potassium 3.8 3.5 - 5.1 mmol/L [facility] Chloride 101 98 - 107 mmol/L [facility] CO2 18.7 18 - 27 mmol/L [facility] Specimen Type/Conditio n no visible hemolysis [facility] BLOOD SPECIMEN / Unknown 06/04/2009 4:45 PM CDT Lonnie Frankel MD LAB - CHEMISTRY SARAH ISIDRO Performing Organization Address [facility]/[place] Co de Phone Number [facility] * CREATININE BLOOD (06/04/2009 4:45 PM CDT) Only the most recent of2 resultswithin the time period is included. Creatinine 0.41 0.22 - 0.59 mg/dl [facility] Specimen Type/Condition no visible hemolysis [facility] BLOOD SPECIMEN / Unknown 06/04/2009 4:45 PM CDT Lonnie Frankel MD LAB - CHEMISTRY SARAH ISIDRO Performing Organization Address [facility]/[place] Co de Phone Number [facility] * BUN (06/04/2009 4:45 PM CDT) Only the most recent of2 resultswithin the time period is included. BUN 7.9 7 - 18 mg/dl [facility] Specimen Type/Conditio n no visible hemolysis [facility] BLOOD SPECIMEN / Unknown 06/04/2009 4:45 PM CDT Lonnie Frankel MD LAB - CHEMISTRY SARAH ISIDRO Performing Organization Address [facility] de Phone Number [facility] * XR ABD OBSTR SERIES (06/04/2009 9:22 AM CDT) Only the most recent of2 resultswithin the time period is included. Anatomical Region Laterality Modality Abdomen Other 06/04/2009 9:22 AM CDT Narrative 06/04/2009 10:11 AM CDT Abdomen supine, upright The bowel gas pattern, solid organs, bones and soft tissue planes are normal. No pathological calcification or mass effect is present. The lung bases are clear. There is no free air. Diagnosis- Normal abdomen. Reading Radiologist- CAIT FARRELL MD [facility] Radiologist- CAIT FARRELL MD Released Date Time- 06/04/09 1012 Marble Polisher- CAIT FARRELL MD LONNIE SLA THOMAS M ORD- FOY,LONNIE MELO,KASSY MATAMOROS- Procedure Note Cait Farrell MD - 06/04/2009 Abdomen supine, upright The bowel gas pattern, solid organs, bones and soft tissue planes are normal. No pathological calcification or mass effect is present. The lung bases are clear. There is no free air. Diagnosis- Normal abdomen. Reading Radiologist- CAIT FARRELL MD Releasing Radiologist- CAIT FARRELL MD Released Date Time- 06/04/09 1012 Marble Polisher- CAIT FARRELL MD LONNIE SAL THOMAS M ORD- FOY,LONNIE MELO,KASSY MTAAMOROS- Lonnie Frankel MD DIAGNOSTIC IMAGING O RDERABLES * PROTEIN TOTAL BLOOD (06/04/2009 6:05 AM CDT) Pathologist [facility] Protein Total 6.6 6.2 - 8.1 gm/dl [facility] Specimen Type/Conditio n no visible hemolysis [facility] BLOOD SPECIMEN / Unknown 06/04/2009 6:05 AM CDT Lonnie Frankel MD LAB - CHEMISTRY SARAH ISIDRO [facility] * CALCIUM BLOOD (06/04/2009 6:05 AM CDT) Pathologist [facility] Calcium 9.1 8.8 - 10.1 mg/dl [facility] Specimen Type/Conditio n no visible hemolysis [facility] BLOOD SPECIMEN / Unknown 06/04/2009 6:05 AM CDT Lonnie Frankel MD LAB - CHEMISTRY SARAH ISIDRO Performing Organization Address [facility]/[place] Co de Phone Number [facility] * BILIRUBIN TOTAL BLOOD (06/04/2009 6:05 AM CDT) Bilirubin Total 0.7 0.6 - 1.4 mg/dl [facility] Specimen Type/Conditio n no visible hemolysis [facility] BLOOD SPECIMEN / Unknown 06/04/2009 6:05 AM CDT Lonnie Frankel MD LAB - CHEMISTRY SARAH ISIDRO Performing Organization Address [facility]/[place] Co de Phone Number [facility] * ALKALINE PHOSPHATASE BLOOD (06/04/2009 6:05 AM CDT) Alkaline Phosphatase 180 175 - 420 Units/L [facility] Specimen Type/Condition no visible hemolysis [facility] BLOOD SPECIMEN / Unknown 06/04/2009 6:05 AM CDT Lonnie Frankel MD LAB - CHEMISTRY SARAH ISIDRO Performing Organization Address [facility]/[place] Co de Phone Number [facility] * ALBUMIN BLOOD (06/04/2009 6:05 AM CDT) Albumin 4.2 3.7 - 5.6 gm/dl [facility] Specimen Type/Conditio n no visible hemolysis [facility] BLOOD SPECIMEN / Unknown 06/04/2009 6:05 AM CDT Lonnie Frankel MD LAB - CHEMISTRY SARAH ISIDRO Performing Organization Address [facility]/[place] Co de Phone Number [facility] * CULTURE URINE (06/03/2009 1:51 PM CDT) Only the most recent of3 resultswithin the time period is included. Report [facility] Comment: Final - GRAM STAIN No organisms seen CULTURE 2 colony types present at <10,000 CFU/ml 3 or more colony types present at > or = 10,000 CFU/ml Including STREPTOCOCCUS PNEUMONIAE >=10,000 CFU/ml SUGGESTS CONTAMINATION No further workup performed URINE SPECIMEN OBTAINED BY CLEAN CATCH PROCEDURE / Unknown 06/03/2009 1:51 PM CDT Chele Arredondo DO LAB - MICROBIOLOGY Saima SUN Performing Organization Address [facility]/[place] Co de Phone Number [facility] * (ABNORMAL) COMPREHENSIVE METABOLIC PANEL (06/03/2009 1:00 PM CDT) Only the most recent of2 resultswithin the time period is included. Sodium 139 137 - 145 mmol/L [facility] Potassium 4.3 3.5 - 5.1 mmol/L [facility] Chloride 103 98 - 107 mmol/L [facility] CO2 13.9(L) 18 - 27 mmol/L [facility] Glucose 81 70 - 106 mg/dl [facility] BUN 21.4(H) 7 - 18 mg/dl [facility] Calcium 10.0 8.8 - 10.1 mg/dl [facility] Bilirubin Total 0.6 0.6 - 1.4 mg/dl [facility] Protein Total 9.2(H) 6.2 - 8.1 gm/dl [facility] Albumin 5.5 3.7 - 5.6 gm/dl [facility] ALT 18 10 - 35 Units/L [facility] AST 26 15 - 40 Units/L [facility] Alkaline Phosphatase 231 175 - 420 Units/L [facility] Creatinine 0.55 0.22 - 0.59 mg/dl [facility] Specimen Type/Condition no visible hemolysis [facility] BLOOD SPECIMEN / Unknown 06/03/2009 1:00 PM CDT Chele P Arnulfo DIAZ LAB - CHEMISTRY SARAH ISIDRO [facility] * FL FLUORO UGI SERIES (04/26/2009 8:40 AM MEASUREMENT AND SENSING TECHNICIAN) Anatomical Region Laterality Modality Abdomen Other 04/26/2009 8:40 AM MEASUREMENT AND SENSING TECHNICIAN Narrative 04/26/2009 1:39 PM MEASUREMENT AND SENSING TECHNICIAN The patient was given barium to drink under fluoroscopic observation. The esophagus is normal in course and caliber without abnormal extrinsic compression. The gastric outlet is normal. The ligament of Treitz is in the expected location in the left upper quadrant. Diagnosis- Normal upper GI. MD Fernando Benavidez RadiologistDina FARRELL MD Releasing RadiologistDina FARRELL MD Released Date Time- 04/26/09 1340 Marble Polisher- ROQUE KUMARI MD KASSY HSU KELLY ORD- LINDSEY,KASSY HEMPHILL- PCPKASSY BETANCUR SCP- Procedure Note Cait Farrell - 04/26/2009 The patient was given barium to drink under fluoroscopic observation. The esophagus is normal in course and caliber without abnormal extrinsic compression. The gastric outlet is normal. The ligament of Treitz is in the expected location in the left upper quadrant. Diagnosis- Normal upper GI. MD Fernando Benavidez MD Releasing Jillian FARRELL MD Released Date Time- 04/26/09 1340 Marble Polisher- ROQUE KUMARI MD KASSY HSU KELLY ORD- LINDSEY, KELLY CON- PCP- LINDSEY, KELLY SCP- Kassy Gomez MD FLUOROSCOPY ORDERABL ES * CT HEAD NON CONTRAST (04/15/2009 9:45 AM MEASUREMENT AND SENSING TECHNICIAN) Anatomical Region Laterality Modality Head Other 04/15/2009 9:45 AM MEASUREMENT AND SENSING TECHNICIAN Narrative 04/15/2009 5:54 PM MEASUREMENT AND SENSING TECHNICIAN EXAMINATION- CT brain without contrast Date- 04/15/2009 HISTORY- Headache TECHNIQUE- Multislice sequential. FINDINGS- The midline structures are central. The ventricles are neither dilated nor displaced. The brain attenuation with its paz-white matter interface is normal. No intracranial hemorrhage or extra-axial fluid collection is present. Soft tissue density is present in the right external auditory canal and is likely due to cerumen. Visible mastoid air cells and paranasal sinuses are clear IMPRESSION- No intracranial abnormality. Soft tissue density debris in the right external auditory canal. Reading Radiologist- DAYLIN ANDREA MD Releasing Radiologist- DAYLIN ANDREA MD Released Date Time- 04/15/09 [id number] Marble Polisher- mango KASSY HSU KELLY ORD- LINDSEY, KELLY CON- PCP- LINDSEY, KELLY SCP- Procedure Note Per Andrea MD - 04/15/2009 EXAMINATION- CT brain without contrast Date- 04/15/2009 HISTORY- Headache TECHNIQUE- Multislice sequential. FINDINGS- The midline structures are central. The ventricles are neither dilated nor displaced. The brain attenuation with its paz-white matter interface is normal. No intracranial hemorrhage or extra-axial fluid collection is present. Soft tissue density is present in the right external auditory canal and is likely due to cerumen. Visible mastoid air cells and paranasal sinuses are clear IMPRESSION- No intracranial abnormality. Soft tissue density debris in the right external auditory canal. Reading Radiologist- DAYLIN ANDREA MD Releasing Radiologist- DAYLIN ANDREA MD Released Date Time- 04/15/09 1755 Marble Polisher- mango KASSY HSU KELLY ORD- LINDSEY, KELLY CON- PCP- KASSY GOMEZ SCP- Kassy Gomez MD CT ORDERABLES * US KIDNEY (03/20/2009 11:30 AM MEASUREMENT AND SENSING TECHNICIAN) Anatomical Region Laterality Modality Abdomen Other 03/20/2009 11:3 0 AM MEASUREMENT AND SENSING TECHNICIAN Narrative 03/20/2009 11:45 AM MEASUREMENT AND SENSING TECHNICIAN Right kidney- 9.4 x 3.9 x 4.3 cm Left kidney- 9.2 x 4.0 x 3.8 cm The renal size, position, contour, and echotexture are normal. No perfusion defects are identified. The collecting systems and ureters are not dilated. The bladder is normal. Diagnosis- Normal renal sonogram. Reading Radiologist- CAIT FARRELL MD Releasing Radiologist- CAIT FARRELL MD Released Date Time- 03/20/09 1146 Marble Polisher- CAIT FARRELL MD YOLANDA GRIFFITH DENNIS M ORD- NELMS, LYNN CON- SIMONES, MICHAEL A PCP- LINDSEY, KELLY SCP- Procedure Note Cait Farrell - 03/20/2009 Right kidney- 9.4 x 3.9 x 4.3 cm Left kidney- 9.2 x 4.0 x 3.8 cm The renal size, position, contour, and echotexture are normal. No perfusion defects are identified. The collecting systems and ureters are not dilated. The bladder is normal. Diagnosis- Normal renal sonogram. Reading Radiologist- CAIT FARRELL MD [facility] Radiologist- CAIT FARRELL MD Released Date Time- 03/20/09 1146 Marble Polisher- CAIT FARRELL MD - YOLANDA WAGNER DENNIS M ORD- NELMS, LYNN CON- SIMONES, MICHAEL A PCP- KASSY GOMEZ [facility]- Emani Gould MD ORDERABLES * OCCULT BLOOD EMESIS (03/20/2009 3:45 AM MEASUREMENT AND SENSING TECHNICIAN) Occult Blood Emesis Negative [facility] VOMITUS SPECIMEN / Unknown 03/20/2009 3:45 AM MEASUREMENT AND SENSING TECHNICIAN Emani Gould MD LAB - BODY FLUID ORD ERABLES [facility] Care Teams Forming Machine Upkeep Mechanic Helper Relationship Specialty Start Date End Date Isabel Garcias MD [address] [place] [id number] PCP - General Family Medicine 09/14/14
--- OUTSIDE RECORDS SUMMARY | 2024-05-11 09:46 | XMS_ITS | Clinical Summary ---
Author Organization [facility] Address [address] [place] [address] Phone Care Team Providers Care Foam Machine Operator Name Role Phone Isabel Garcias MD Primary Care Provider Allergies No known active allergies Medications methylphenidate ER 54 mg tablet,extended release 24 hr Take 54 mg by mouth daily in the morning. Active amitriptyline (ELAVIL) 10 mg tablet Take 30 mg by mouth daily at bedtime. Active sertraline (ZOLOFT) 50 mg tablet Take 50 mg by mouth daily. Active prucalopride (MOTEGRITY) 2 mg TabletIndications :Chronic constipation Take 1 Tablet (2 mg) by mouth daily. 30 Tablet 4 Active coenzyme Q10 200 mg CapsuleIndication s:Cyclic vomiting syndrome Take 1 Capsule (200 mg) by mouth 2 times daily. 4 Active SUMAtriptan (IMITREX) 20 mg/actuation [place], Non-AerosolIndica tions:Cyclic vomiting syndrome [place] into one nostril within 30-45 minutes of symptom onset. If needed, may repeat in 2 hours; max dose: 40mg in 24 hours and 6 doses in one week. 1 Each 4 Active HYDROcodone-aceta minophen (NORCO) 5-325 mg tabletIndications :Dysfunctional gallbladder Take 1 Tablet by mouth every 6 hours as needed for Pain. Max Daily Amount: 4 Tablets 20 Tablet 4 Active prochlorperazine maleate (COMPAZINE) 10 mg tablet TAKE 1 TABLET(10 MG) BY MOUTH EVERY 6 HOURS NEEDED FOR NAUSEA OR VOMITING 20 Tablet 4 Active scopolamine (Transderm-Scop) 1 mg/72 hr patch Apply 1 patch behind ear every 72 hours. Remove old patch prior to placing new patch. 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 Dysfunctional gallbladder 09/21/2023 Acute cystitis without hematuria 06/06/2023 Infectious gastroenteritis 06/05/2023 Cyclical vomiting syndrome 06/05/2023 Dehydration 06/05/2023 Encounters Date Type Department Care Team Description 05/06/2024 External Device Data [facility] ABSTRACTION Provider, Abstract 04/29/2024 External Device Data [facility] ABSTRACTION Provider, Abstract 04/15/2024 External Device Data [facility] ABSTRACTION Provider, Abstract 03/27/2024 External Device Data [facility] ABSTRACTION Provider, Abstract 03/19/2024 External Device Data [facility] ABSTRACTION Provider, Abstract 03/11/2024 External Device Data [facility] ABSTRACTION Provider, Abstract 02/19/2024 External Device Data [facility] ABSTRACTION Provider, Abstract from Last 3 Months Social History Tobacco Use Types Packs/Day Years Used Date Smoking Tobacco: Never Smokeless Tobacco: Never Tobacco Cessation:Counseling Given: Not Answered Alcohol Use Standard Drinks/Week Comments Not Currently 0 (1 standard drink = 0.6 oz pur e alcohol) Financial Resource Strain Answer Date R ecorded How hard is it for you to pa y for the very basics like food, housing, medical care, and heating? Not very hard 11/07/2023 Feeling Safe Answer Date Recorded Are you in a relationship wi th someone who hurts you emotionally and/or physically? No 11/05/2023 Food Insecurity Answer Date Recorded Social/Environmental Concerns No concerns Transportation Needs Answer Date Record ed Social/Environmental Concerns No concerns Housing Stability Answer Date Recorded Social/Environmental Concerns No concerns Utility Needs Answer Date Recorded Social/Environmental Concerns No concerns Comments No Sex and Gender Information Value Date Recorded Sex Assigned at Not on file Legal Sex Female 3:36 PM CDT Gender Identity Not on file Sexual Orientation Not on file Last Filed Vital Signs Vital Sign Reading Time Taken Comments Blood Pressure 116/78 11/08/2023 4:30 AM CDT Pulse 90 11/08/2023 4:30 AM CDT pulse ox Temperature 36.9 C (98.4 F) 11/08/2023 4:30 AM CDT Respiratory Rate 18 11/08/2023 4:30 AM CDT Oxygen Saturation 98% 11/08/2023 4:30 AM CDT Inhaled Oxygen Concentration - - Weight 66.8 kg (147 lb 3.2 oz) 11/05/2023 6:06 P M CDT Height 172.7 cm (5' 8 ) 11/05/2023 6:06 PM CDT Body Mass Index 22.38 11/05/2023 6:06 PM CDT Plan of Treatment Health Maintenance Due Date Last Done Comments CHLAMYDIA SCREENING (ANNUAL) 11-24 YEARS 05/15/2011 HPV VACCINES (1 - 3-dose series) 05/15/2015 CERVICAL CANCER SCREENING 2021 DTAP/TDAP/TD VACCINES (7 - Td or Tdap) 09/24/2021 09/25/2011, 03/29/2005, 08/14/2001, Additional history exists INFLUENZA VACCINE (#1) 2023 01/24/2011 HEPATITIS B VACCINES Completed 2000, 2000, 2000 PNEUMOCOCCAL VACCINE 0-49 YEARS Aged Out 08/14/2001, 2000, 2000, Additional history exists No longer eligible based on patient's age to complete this topic Medical Devices Implanted Type Area Straightener Gun Parts Device Identifier Shelf Expiration Date Model / Serial / Lot Clip Ligating Vas-Q Med/Lrg 8.69mm 223 - [id number] Implanted:Qty: 1 on 10/08/2023 by Zachary Parson MD at [facility] Clip N/A: Abdomen [employer] 10/19/2026 [id number] / / Insurance RX [employer] Express Advance Directives For more information, please contact: [phone] * Full Code (Latest Code Status on File) Date Activated Date Inactivated Comments 11/05/2023 6:37 PM 11/08/2023 12:12 PM * Full Code Date Activated Date Inactivated Comments 10/14/2023 1:15 PM 10/16/2023 12:58 PM * Full Code Date Activated Date Inactivated Comments 10/04/2023 5:09 AM 10/09/2023 1:38 PM * Full Code Date Activated Date Inactivated Comments 09/21/2023 12:02 AM 09/23/2023 3:22 PM * Full Code Date Activated Date Inactivated Comments 06/05/2023 9:40 PM 06/09/2023 1:54 PM Care Teams Foam Machine Operator Relationship Specialty Start Date End Date Isabel Garcias MD [address] [place] [address] [address] [place] [address] PCP - General Family Practice 11/07/23
--- OUTSIDE RECORDS SUMMARY | 2024-05-11 09:46 | XMS_ITS | Referral Summary ---
Author Organization [facility] Address [address] [place] [address] Care Team Providers Care Sheet Rock Finisher Name Role Phone Isabel Garcias MD Primary Care Provider [phone] Source Comments [facility],non-owned Affiliates and Associated Physician Practices is amultiple site organization consisting of ambulatory clinics and hospital sitesin [place], [place], [place] and [place]. This disclosure is being madepursuant to the Care Everywhere program and may not contain all information available regarding this patient. Last updated 17.[facility] [employer] Allergies No known active allergies Medications * Be aware that medications may not be up to date on this document. Alwaysverify current medications with the patient. Medication Sig Dispensed Refills Start Date End Date Status amitriptyline (ELAVIL) 25 MG tablet Take 25 mg by mouth at bedtime Active ibuprofen (MIDOL) 200 MG capsule Take 200 mg by mouth 4 times daily as needed for Pain Active Active Problems Problem Noted Date Diagnosed Date Vomiting 07/02/2009 Assessment & Plan (09/15/2014 2:40 PM CDT): Assessment: Patricia is a 14 y.o. Female [...] 5. Discharge home once tolerating regular diet Assessment & Plan (09/15/2014 10:44 AM CDT): Assessment: 14 y.o female with nausea, vomiting and abdominal pain which has not resolved with Zofran and toradol. Patient received a bolus of NS in the ED after a low bicarb was found on CMP. Amylase and lipase were both WNL. Patient has a history of similar symptoms and had endoscopic evaluation and fluoroscopic upper GI in 2009 which pointed to likely diagnosis of cyclical vomiting or abdominal migraines. She does have a history of anxiety and her mother says that her current symptoms could be worsened by recent stressors in her life. Other than decreased bicarb of 17 and Hb there are no other abnormal laboratory values. This is likely secondary to gastritis or viral gastroenteritis based on short duration and lack of other symptoms, could also be secondary to abdominal migraines as patient does have a history of this. Urinalysis was also ordered, patient has a history of reflux with one episode of severe UTI in the past; however she denies any increased frequency, dysuria or hematuria. Plan: -Admit to inpatient general pediatrics with Dr. Mosqueda -Pending UA and urine hCG -Nexium 20 mg IV QD -Amitryptiline 25 mg QHS for anxiety and sleep -PRN zofran 4mg q6hr -Clear liquid diet, advance as tolerated -Vitals q8hr -Probable discharge later today. Assessment & Plan (09/14/2014 9:16 PM CDT): Assessment: 14 y.o female with nausea, vomiting and abdominal pain which has not resolved with Zofran and toradol. Patient received a bolus of NS in the ED after a low bicarb was found on CMP. Amylase and lipase were both WNL. Patient has a history of similar symptoms and had endoscopic evaluation and fluoroscopic upper GI in 2009 which pointed to likely diagnosis of cyclical vomiting or abdominal migraines. She does have a history of anxiety and her mother says that her current symptoms could be worsened by recent stressors in her life. Other than decreased bicarb of 17 and Hb there are no other abnormal laboratory values. This is likely secondary to gastritis or viral gastroenteritis based on short duration and lack of other symptoms, could also be secondary to abdominal migraines as patient does have a history of this. Urinalysis was also ordered, patient has a history of reflux with one episode of severe UTI in the past; however she denies any increased frequency, dysuria or hematuria. Plan: -Admit to inpatient general pediatrics with Dr. Mosqueda -Pending UA and urine hCG -Nexium 20 mg IV QD -Amitryptiline 25 mg QHS for anxiety and sleep -PRN zofran 4mg q6hr -Clear liquid diet, advance as tolerated -Vitals q8hr Social History Tobacco Use Types Packs/Day Years [...] CD T Body Mass Index - - Functional Status Functional Status Response Date of Assess ment Is person deaf or have serious hearing difficult y? No 09/14/2014 Is person blind or have serious difficulty seein g? No 09/14/2014 Does person have serious dif ficulty walking/climbing stairs? No 09/14/2014 Does person have difficulty dressing/bathing? No 09/14/2014 Does person have difficulty doing errands alone? No 09/14/2014 Cognitive Status Response Date of Assessm ent Does person have difficulty concentrating/remembering/making decisions? No 09/14/2014 Plan of Treatment Not on file Insurance Payer Benefit Plan / Group Subscriber ID Effective Dates Phone Address Type SKINNY [employer] [id number] Effective for all dates [address] [place] [address] PPO SKINNY [employer] OUT OF STATE PPO [id number] 2012-Present [address] [place] [address] PPO Advance Directives * Full Code (Latest Code Status on File) Date Activated Date Inactivated Comments 09/14/2014 8:30 PM 09/15/2014 4:40 PM Care Teams Sheet Rock Finisher Relationship Specialty Start Date End Date Isabel Garcias MD [address] [place] [address] PCP - General Family Medicine 09/14/14
--- OUTSIDE RECORDS SUMMARY | 2024-05-11 09:46 | XMS_ITS | Clinical Summary ---
Author Organization [facility] Address [address] [place] [address] Care Team Providers Care Venetian Blind Worker Name Role Phone Isabel Garcias MD Primary Care Provider [phone] Source Comments [facility],non-owned Affiliates and Associated Physician Practices is amultiple site organization consisting of ambulatory clinics and hospital sitesin [place], [place], [place] and [place]. This disclosure is being madepursuant to the Care Everywhere program and may not contain all information available regarding this patient. Last updated 17.[facility] [employer] Allergies No known active allergies Medications * [...] liquid diet, advance as tolerated -Vitals q8hr Family History Medical History Relation Name Comments Cancer - Pancreatic Maternal Grandfather Hypercholesterolemia Maternal Grandmother Pacemaker Maternal Grandmother Heart Disease Paternal Grandmother Relation Name Status Comments Maternal Grandfather Maternal Grandmother Mother Alive Paternal Grandmother Sister Alive Social History Tobacco Use Types Packs/Day Years [...] CD T Body Mass Index - - Plan of Treatment Health Maintenance Due Date Last Done Comments PAP SMEAR 2000 HIV SCREENING 05/15/2015 HPV VACCINE (1 - 3-dose series) 05/15/2015 CHLAMYDIA/GONORRHEA SCREENING 2016 MENINGOCOCCAL (Group B) VACC INE (1 of 2 - Standard) 2016 HEPATITIS C SCREENING 05/10/2018 DTAP/TDAP/TD VACCINES (1 - Tdap) 05/15/2019 HEPATITIS B VACCINE (1 of 3 - 19+ 3-dose series) 05/15/2019 COVID-19 VACCINE ( - 2023-2 5 season) 2023 INFLUENZA VACCINE (#1) 2023 DEPRESSION SCREENING 03/05/2024 ZOSTER VACCINE (1 of 2) 2050 HIB VACCINE Aged Out No longer eligi ble based on patient's age to complete this topic MENINGOCOCCAL VACCINE Aged Out No erica joe eligible based on patient's age to complete this topic PNEUMOCOCCAL VACCINE Aged Out No long er eligible based on patient's age to complete this topic Insurance Payer Benefit Plan / Group Subscriber ID Effective Dates Phone Address Type ANTHEM ANTHEM BLUE ACCESS [id number] Effective for all dates [address] [place] [address] PPO ANTHEM BLUE CROSS OUT OF STATE PPO [id number] 2012-Present [address] [place] [address] PPO Advance Directives * Full Code (Latest Code Status on File) Date Activated Date Inactivated Comments 09/14/2014 8:30 PM 09/15/2014 4:40 PM Care Teams Venetian Blind Worker Relationship Specialty Start Date End Date Isabel Garcias MD [address] [place] [address] PCP - General Family Medicine 09/14/14
[2024-05-11 09:50] VITALS: BP 148/95; PULSE 120; RESP 20; TEMP 36.4; O2SAT 100
--- NOTE | 2024-05-11 10:12 | ED_ITS ---
HPI - General Adult General Chief complaint: Nausea/Vomiting/Diarrhea Stated complaint: nausea Source: patient Mode of arrival: ambulatory Limitations: no limitations History of Present Illness HPI narrative: Patient presents for a refill on compazine. She states she has a history of cyclic vomiting and has experienced episodes of vomiting for the last week. Her current symptoms are consistent with previous bouts of cyclic vomiting. Denies any fever, chills, cough, shortness of breath, sore throat, or diarrhea. No change in bowel pattern. Last bowel movement was two days ago. No recent sick contacts to her knowledge. She does not consume alcohol or use marijuana. She states compazine is the only medication that works. She states she only came in for a medication refill. Related Data Home Medications ?Medication ?Instructions ?Recorded ?Confirmed ?Last Taken ?Type prochlorperazine maleate 10 mg mg PO 10/17/23 05/06/24 Unknown History tablet sumatriptan 20 mg/actuation nasal mg intranasal ONCE 10/17/23 05/06/24 Unknown History spray sumatriptan succinate 50 mg tablet mg PO 10/17/23 05/06/24 Unknown History scopolamine base 1 mg over 3 days transdermal 11/13/23 05/06/24 Unknown History transdermal patch Allergies Allergy/AdvReac Type Severity Reaction Status Date / Time No Known Allergies Allergy Verified 05/11/24 10:05 Review of Systems Review of Systems: CONSTITUTIONAL: Denies fever, chills, or sweats. EYES: Denies visual changes, redness, or discharge. ENT: Denies rhinorrhea, congestion, sore throat, or otalgia. CARDIOVASCULAR: Denies chest pain, palpitations, or edema. RESPIRATORY: Denies cough or dyspnea. GASTROINTESTINAL: Reports nausea and vomiting. Denies diarrhea or constipation GENITOURINARY: Denies dysuria or hematuria. SKIN: Denies rash or itching. MUSCULOSKELETAL: Denies back pain, joint pain, or myalgia. NEUROLOGIC: Denies headache, numbness, dizziness, or weakness. PSYCHIATRIC: Denies anxiety or depression. 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 Family History Family History Other No significant family history Social History Social History Social History: She reports she just [facility] [employer] with a BA in biology. She has not yet started looking for work. She has dating and sexually active. She drinks alcohol about once a month. She denies any illicit substance use. She does vape nicotine. She lives with her parents. Code status: Full code Surrogate decision maker: Mother Smoking status: Former smoker Tobacco type: e-cigarettes/vaping Additional smoking assessment comments: vapes daily, unsure amount Alcohol intake: never Substance use: former Substance use type: marijuana Do You Feel Safe in your Home?: Yes Lack of Transportation: No Lack of Food: Never True Current Housing: I Have Housing Concerned About Future Housing: No Difficulty Paying Gas/Electric Bills: No Difficulty Paying for Meds: No Currently Unemployed: No Education: Bachelor's Degree Difficulty w/ Childcare or Family Care: No Spiritual care concerns: No Exam Narrative: GENERAL: Well-appearing, well-nourished, and in no acute distress. HEAD: Normocephalic, atraumatic. EYES: PERRLA and EOMI. ENT: Nares clear, no rhinorrhea or epistaxis. Mucous membranes moist. Oropharynx without tonsillar hypertrophy exudate or other lesions. Bilateral TMs pearly paz nonbulging NECK: Supple. No adenopathy or masses. No carotid bruits or JVD CHEST: Clear to auscultation. No respiratory distress. No wheezes rales or rhonchi HEART: Regular rate and rhythm. No murmur heard. Normal peripheral pulses. ABDOMEN: Soft, nontender, nondistended, normal active bowel sounds. EXTREMITIES: Normal range of motion. No edema. SKIN: Warm, dry, no rash. NEURO: No focal deficits. Alert and oriented x3. PSYCH: Normal mood and affect. Course Course Emergency Course: This is a 23-year-old female with history of cyclic vomiting the presented for evaluation of nausea and vomiting consistent with her previous bouts of cyclic vomiting. Her last menstrual period was 2 days ago. She has not have any urinary symptoms. No sick symptoms to suggest COVID or fluid. She indicates she simply wants a prescription for Compazine. He did offer to send her to the ER for labs. She declined. Today is her grandmother's and she does not want to miss it. She is advised to follow up with primary care provider and go to the ER for worsening symptoms. Patient in agreement with plan of care Level of Care: Express Care Visit Vital Signs Vital signs: Vital Signs Temperature 36.4 C 05/11/24 09:50 Pulse Rate 120 H 05/11/24 09:50 Respiratory Rate 20 05/11/24 09:50 Blood Pressure 148/95 H 05/11/24 09:50 Pulse Oximetry 100 05/11/24 09:50 Oxygen Delivery Room Air 05/11/24 09:50 Temperature 36.4 C 05/11/24 09:50 Pulse Rate 120 H 05/11/24 09:50 Respiratory Rate 20 05/11/24 09:50 Blood Pressure 148/95 H 05/11/24 09:50 Pulse Oximetry 100 05/11/24 09:50 Oxygen Delivery Room Air 05/11/24 09:50 Medical Decision Making Vital Signs Vital Signs: Vital Signs Temperature 36.4 C 05/11/24 09:50 Pulse Rate 120 H 05/11/24 09:50 Respiratory Rate 20 05/11/24 09:50 Blood Pressure 148/95 H 05/11/24 09:50 Pulse Oximetry 100 05/11/24 09:50 Oxygen Delivery Room Air 05/11/24 09:50 Temperature 36.4 C 05/11/24 09:50 Pulse Rate 120 H 05/11/24 09:50 Respiratory Rate 20 05/11/24 09:50 Blood Pressure 148/95 H 05/11/24 09:50 Pulse Oximetry 100 05/11/24 09:50 Oxygen Delivery Room Air 05/11/24 09:50 Discharge Plan Discharge Clinical Impression: Cyclical vomiting Patient Disposition: Home, Self-Care Condition: Stable Instructions: Antibiotic Form, Cyclic Vomiting Syndrome (ED) Patient Language: Slovenian Prescriptions: New prochlorperazine maleate [Compazine] 10 mg tablet 10 mg PO Q8H PRN (Reason: nausea and vomiting) Qty: 20 0RF No Action scopolamine base 1 mg over 3 days patch 3 day transdermal sumatriptan succinate 50 mg tablet PO prochlorperazine maleate 10 mg tablet PO sumatriptan 20 mg/actuation spray,non-aerosol intranasal ONCE amitriptyline 10 mg tablet 30 mg PO QHS Qty: 270 1RF sertraline 50 mg tablet 50 mg PO DAILY Qty: 90 1RF desog-e.estradiol/e.estradiol [Volnea (28)] 0.15-0.02 mgx21 /0.01 mg x 5 tablet See Rx Instructions .ROUTE .COMPLEX Qty: 84 3RF Dose Instruction: TAKE 1 TABLET DAILY Rx Instructions: TAKE 1 TABLET DAILY methylphenidate HCl 54 mg tablet extended release 24hr 54 mg PO QAM Qty: 30 0RF Follow-up/Referrals: Isabel Garcias MD [Primary Care Provider] - Time of Disposition: 10:08
== END 2024-05-11 10:08 | disposition home or self-care (01) ==
PROVIDERS: Emergency Provider Nurse Practitioner; PCP Family Medicine
DX: R11.15 Cyclical vomiting syndrome unrelated to migraine (principal); Q79.60 Ehlers-Danlos syndrome, unspecified; F90.9 Attention-deficit hyperactivity disorder, unspecified type; F41.1 Generalized anxiety disorder; F32.A Depression, unspecified; F17.290 Nicotine dependence, other tobacco product, uncomplicated
CPT/HCPCS: 99213; G0463